=== PATIENT | female | born 1980 | race Caucasian/White ===

== ENCOUNTER 2018-11-16 09:07 | Emergency (ER) | payer OTHER, SELFPAY ==
[2018-11-16 09:10] VITALS: BP 175/101; PULSE 79; RESP 22; TEMP 37; O2SAT 100; BMI 37.5
--- NOTE | 2018-11-16 09:19 | DI.RAD.S_ITS ---
PROCEDURE: XR WRIST LT MIN 3V INDICATIONS: multiple injuries to left wrist TECHNIQUE: 4 views of the wrist were acquired. COMPARISON: None. FINDINGS: Bones: No fractures or dislocations. No suspicious bony lesions. Scaphoid view: Negative for fracture. Soft tissues: No suspicious soft tissue calcifications. IMPRESSION: Intact left wrist. Dictated by: Althea Machado M.D. on 11/16/2018 at 9:50 Approved by: Althea Machado M.D. on 11/16/2018 at 9:51
[2018-11-16 10:06] VITALS: PULSE 88
--- NOTE | 2018-11-16 10:07 | PC.NURSE ---
Left wrist: No trauma noted. No swelling or bruising. Took tylenol and ibuprofen (1000 mg / 800 mg) @ 0930. Pain appears to be improportionate to injury / exam.
--- NOTE | 2018-11-16 10:09 | ED.UPPEXIN ---
HPI - Extremity Injury (Upper) General Chief Complaint: Extremity Injury, Upper Stated Complaint: Twisted wrist Lt. Time Seen by Provider: 11/16/18 09:30 Source: patient Mode of arrival: ambulatory Limitations: no limitations History of Present Illness HPI narrative: Patient is a 37-year-old female who presents with left wrist pain. She injured it twice over the last 4 days. The 1st was 4 days ago she was crawling around on her hands and knees as the vacuum cord at got wrapped in her wedding ring a got twisted and turned. Then yesterday she picked up a very heavy safe with her left hand increasing the pain. She has been using a splint. She has taken maximum amount of Tylenol and ibuprofen prior to arrival. She feels numbness and tingling in her whole hand. Definitely worse with movement. She has no shoulder pain or elbow pain. MD complaint: injury to: left and wrist Other injuries: none Related Data Previous Rx's Medication Instructions Recorded hydromorphone [Dilaudid] 2 mg PO Q6HP PRN #8 tab 03/10/16 ketorolac 10 mg PO Q6HP PRN #10 tab 03/10/16 prednisone 20 mg PO QAM #3 tab 03/10/16 promethazine 25 mg PO Q6HP PRN #10 tab 03/10/16 promethazine 25 mg PO Q6HP PRN #10 tab 07/10/16 hydrocodone-acetaminophen [[place]] 1 tab PO Q6H PRN #10 tab 11/16/18 Allergies Allergy/AdvReac Type Severity Reaction Status Date / Time Sulfa (Sulfonamide Allergy Severe NAUSEA, Verified 11/16/18 09:31 Antibiotics) ITCHING [SULFA (SULFONAMIDE ANTIBIOTICS)] codeine [CODEINE] Allergy Mild NAUSEA, Verified 11/16/18 09:31 ITCHING cephalexin [CEPHALEXIN] Allergy Unknown NAUSEA/VOMI Verified 11/16/18 09:31 TING levofloxacin [LEVOFLOXACIN] Allergy Unknown N/V, Verified 11/16/18 09:31 DIARRHEA, HEADACHE amoxicillin [AMOXICILLIN] AdvReac Intermediate YEAST Verified 11/16/18 09:31 INFECTION Review of Systems Review of Systems GENERAL: Denies chills,fever HEENT: Denies throat pain RESPIRATORY: Denies dyspnea, cough, wheezing CARDIOVASCULAR: Denies chest pain, palpitations GASTROINTESTINAL: Denies nausea, vomiting MUSCULOSKELETAL: Left wrist pain/injury SKIN: No rash, no laceration, no pruritus NEUROLOGIC: Denies weakness, dizziness, headache, numbness 8 point review of systems is negative except for those stated above and HPI [facility] Medical History Bipolar 1 disorder (Acute) Depression (Acute) Night terrors, adult (Acute) Social History Smoking Status: Former smoker Social History Smoking Status: Former smoker Exam Initial Vital Signs Initial Vital Signs: Vital Signs Temperature 98.6 F 11/16/18 09:10 Pulse Rate 79 11/16/18 09:10 Respiratory Rate 22 11/16/18 09:10 Blood Pressure 175/101 H 11/16/18 09:10 Pulse Oximetry 100 11/16/18 09:10 GENERAL: Well-appearing, well-nourished, CARDIOVASCULAR: peripheral pulses in tact, cap refill <2 sec RESPIRATORY: No respiratory distress, speaks in full sentences without difficulty EXTREMITIES: Normal range of motion, no clubbing or edema. Neurovascularly intact -left wrist mild swelling pain with any motion. Peripheral pulses intact. Sensation to soft touch intact. Pain with movement, of wrist or fingers. Shoulder full range of motion, elbow full range motion NEUROLOGICAL: Cranial nerves II through XII grossly intact. Normal gait and speech. SKIN: Warm, dry, no petechiae, no rashes or lesions. Course Orders Ordered: ED Orders 11/16/18 09:19 XR wrist LT min 3V Stat Vital Signs - 8 hr 11/16/18 09:10 11/16/18 10:06 11/16/18 10:20 Temperature 98.6 F Pulse Rate 79 78 Pulse Rate [Left Radial] 88 Respiratory Rate 22 18 Blood Pressure 175/101 H Blood Pressure [Right Arm] 158/118 H Pulse Oximetry 100 98 MDM - Extremity Injury (Upper) Imaging Data Left wrist: Radiologist's impression: PROCEDURE: XR WRIST LT MIN 3V INDICATIONS: multiple injuries to left wrist TECHNIQUE: 4 views of the wrist were acquired. COMPARISON: None. FINDINGS: Bones: No fractures or dislocations. No suspicious bony lesions. Scaphoid view: Negative for fracture. Soft tissues: No suspicious soft tissue calcifications. IMPRESSION: Intact left wrist. Dictated by: Althea Machado M.D. on 11/16/2018 at 9:50 Approved by: Althea Machado M.D. on 11/16/2018 at 9:51 MDM Narrative Medical decision making narrative: The patient's x-ray is negative. Surely has a splint. She does seem to be in quite a bit of pain. She is able to move fingers. She will be given a few [place] and recommend outpatient follow-up. Discharge Plan Departure Patient Disposition: Home Clinical Impression: Left wrist sprain Qualifiers: Encounter type: initial encounter Qualified Code(s): S63.502A - Unspecified sprain of left wrist, initial encounter Discharge Date/Time: 11/16/18 10:27 Interventions: ED Discharge Assessment Last Done: 11/16/18 10:26 Instructions: DI for Wrist Sprain Activity Restrictions/Additional Instructions: *You have been diagnosed with left wrist sprain *What to do: You may require repeat x-ray in 7-10 days if still having increased pain. If still having pain in 2-3 weeks may require MRI. Wear splint as needed *Continue to take medications as directed [place] 1 tablet every 6 hours if needed for severe pain *Follow up with your primary care provider in 2-3 days *Return to ER if you should have increasing pain increasing weakness or any new, worsening or concerning symptoms CONTROLLED SUBSTANCE DISCHARGE (Narcotoic/benzodiazepine/Flexeril/Phenergan) 1. You have been prescribed narcotic medications, it does have acetaminophen/Tylenol/paracetamol in it so do not take extra Tylenol or Tylenol containing products 2. Please understand that we cannot provide further refills of narcotics, benzodiazepines or controlled substances through the ED and her pain management will need to be through your provider. 3. While on these medications you cannot drive or operate heavy machinery. 4. You cannot sign legal documents or perform any duties such as this. 5. As long as you're taking opiate pain medications he should also be taking a stool softener such as Colace, Dulcolax, MiraLAX or prune juice, to help avoid constipation. Prescriptions: New hydrocodone-acetaminophen [[place]] 5-325 mg tablet 1 tab PO Q6H PRN (Reason: pain) Qty: 10 RF: 0 No Action prednisone 20 MG tablet 20 mg PO QAM Qty: 3 RF: 0 ketorolac 10 MG tablet 10 mg PO Q6HP PRNQty: 10 RF: 0 hydromorphone [Dilaudid] 2 MG tablet 2 mg PO Q6HP PRNQty: 8 RF: 0 promethazine 25 MG tablet 25 mg PO Q6HP PRNQty: 10 RF: 0 promethazine 25 MG tablet 25 mg PO Q6HP PRNQty: 10 RF: 0
[2018-11-16 10:20] VITALS: BP 158/118; PULSE 78; RESP 18; O2SAT 98
--- NOTE | 2018-11-16 10:24 | PC.NURSE ---
Pt states her bp is high for me. She denies headache, chest pain, neuro changes or other complaints except left wrist. Encouraged to return for any s/s of hypertension. Encouraged to discuss w/ provider when she them her in 2 days.
== END 2018-11-16 10:27 | disposition home or self-care (01) ==
PROVIDERS: Emergency Provider Emergency Medicine
DX: S63.502A Unspecified sprain of left wrist, initial encounter (principal); X50.0XXA Overexertion from strenuous movement or load, initial encounter
CPT/HCPCS: 73110; 99282; 99283

== ENCOUNTER 2022-06-26 12:20 | Emergency (ER) | payer OTHER, SELFPAY ==
[2022-06-26] VITALS (15 sets, daily range): BP systolic 127–152; BP diastolic 74–92; PULSE 105–123; RESP 16–18; TEMP 36.6; O2SAT 91–100; BMI 45.1
--- NOTE | 2022-06-26 12:29 | DI.RAD.S_ITS ---
PROCEDURE: XR HIP W PEL IF DONE RT 2V INDICATIONS: Fall TECHNIQUE: AP pelvis with lateral view(s) of the right hip(s). COMPARISON: None. FINDINGS: Bones: No fractures or dislocations. Pelvic ring appears intact. No suspicious bony lesions. Soft tissues: The visualized bowel gas pattern is normal. No suspicious soft tissue calcifications. IMPRESSION: No visualized acute fracture or dislocation. However, if clinical concern and/or pain persist, short interval imaging followup in 7-10 days is recommended, as occult injury cannot be definitively excluded. Dictated by: Sandy Jacob M.D. on 06/26/2022 at 13:11 Approved by: Sandy Jacob M.D. on 06/26/2022 at 13:11
--- NOTE | 2022-06-26 12:30 | DI.RAD.S_ITS ---
PROCEDURE: XR RIBS RT MIN 3V W CXR 1V INDICATIONS: Fall TECHNIQUE: Two views of the right ribs were acquired, along with a single view chest. COMPARISON: None. FINDINGS: Surgical changes and devices: None. Bones and chest wall: No fractures or dislocations. No suspicious bony lesions. Overlying soft tissues appear unremarkable. Lungs and pleura: No pleural effusions or pneumothorax. Lungs appear clear. Mediastinum: Mediastinal contours appear normal. Heart size is normal. IMPRESSION: No trauma found, no pneumothorax identified. Dictated by: Tino Phipps M.D. on 06/26/2022 at 13:04 Approved by: Tino Phipps M.D. on 06/26/2022 at 13:06
--- NOTE | 2022-06-26 12:42 | PC.NURSE ---
Per EMS pt received total of 200mcg fentanyl and 4mg zofran in route. Pt noted to desat to 86%, breathing even and unlabored, applied 2L NC and educated pt on deep breathing. Pt verbalizes understanding.
--- NOTE | 2022-06-26 13:22 | ED_ITS ---
HPI - Fall <Cintia Angel Vanefarida, [facility] [place] - Last Filed: 06/26/22 17:10> General Chief Complaint: Fall Stated Complaint: R Hip snap crackle pop Time Seen by Provider: 06/26/22 12:55 Source: patient and EMS Mode of arrival: EMS History of Present Illness HPI Narrative: This is a 41-year-old female with history of bipolar 1 who presents to the emergency department via EMS after a mechanical fall where she was walking outsi de onto her right side and now complains of right-sided hip pain. She states that she is had a history hip pain with ambulation for the last 2-3 months. She denies any surgeries over lower extremities in the past. She has history of bladder stimulator, denies history of low back pain, has documented history kidney stone and hematuria in the past and endorses that she feels like she has a urinary tract infection. She states that she is allergic to multiple antibiotics, states she is allergic to Percocet with itching but does not have anaphylaxis, states that she uses Xanax and muscle relaxers for pain at. She also states that Zofran is not adequate for nausea and she needs something stro nger. She states that she is had a low-grade fever for the last 2 days but denies diaphoresis, shortness of breath, difficulty breathing, chest pain, weakness, incontinence, abdominal pain, flank pain or other pain. She denies any sensation changes, states that after the fall she was able to get up with the help of 2 people but states she was unable to bear weight on this side. Patient is sitting up on the stretcher, appears comfortable, is talkative, received 200 mcgs of fentanyl EN route. Patient denies any in her head, did not have any emesis, does not feel neck pain, denies LOC. Related Data Previous Rx's Medication Instructions Recorded hydromorphone 2 mg tablet 2 mg PO Q6HP PRN #8 tabs 03/10/16 (Dilaudid) ketorolac 10 mg tablet 10 mg PO Q6HP PRN #10 tabs 03/10/16 prednisone 20 mg tablet 20 mg PO QAM #3 tabs 03/10/16 promethazine 25 mg tablet 25 mg PO Q6HP PRN #10 tabs 03/10/16 promethazine 25 mg tablet 25 mg PO Q6HP PRN #10 tabs 07/10/16 hydrocodone 5 mg-acetaminophen 325 1 tab PO Q6H PRN pain #10 tabs 11/16/18 mg tablet (Irving) nitrofurantoin 100 mg PO BID 5 days #10 caps 06/26/22 monohydrate/macrocrystals 100 mg capsule (Macrobid) oxycodone-acetaminophen 5 mg-325 1 tab PO Q8H PRN pain #10 tabs 06/26/22 mg tablet (Percocet) phenazopyridine 200 mg tablet 200 mg PO QPC PRN pain 6 doses #7 06/26/22 (Pyridium) tabs promethazine 12.5 mg tablet 12.5 mg PO BID #10 tabs 06/26/22 Allergies Allergy/AdvReac Type Severity Reaction Status Date / Time Sulfa (Sulfonamide Allergy Severe NAUSEA, Verified 06/26/22 12:26 Antibiotics) ITCHING [SULFA (SULFONAMIDE ANTIBIOTICS)] codeine [CODEINE] Allergy Mild NAUSEA, Verified 06/26/22 12:26 ITCHING cephalexin [CEPHALEXIN] Allergy Unknown NAUSEA/VOMI Verified 06/26/22 12:26 TING levofloxacin [LEVOFLOXACIN] Allergy Unknown N/V, Verified 06/26/22 12:26 DIARRHEA, HEADACHE amoxicillin [AMOXICILLIN] AdvReac Intermediate YEAST Verified 06/26/22 12:26 INFECTION Review of Systems <KEENAN Lopes - Last Filed: 06/26/22 17:10> Review of Systems ROS Unobtainable: All systems reviewed & are unremarkable except as noted in HPI and below Patient History <KEENAN Lopes - Last Filed: 06/26/22 17:10> Medical History (Updated 06/26/22 @ 16:24 by KEENAN Lopes) Bipolar 1 disorder Depression Night terrors, adult Social History Smoking Status: Former smoker Smoking Status: Former smoker alcohol intake frequency: holidays/special occasions only Substance Use Type: does not use Exam <KEENAN Lopes - Last Filed: 06/26/22 17:10> Narrative Exam Narrative: Reviewed vitals signs and nursing notes. General: cooperative, comfortable, in no acute distress, well groomed, afebrile HEENT: symmetrical facial expressions, moist mucous membranes Cardiovascular tachycardic rate and regular rhythm, no peripheral edema, warm extremities Respiratory: normal effort, able to speak in complete sentences, without wheezing, stridor, or abnormal breath sounds. No retractions or tachypnea. Currently she is wearing 2 L nasal cannula but her pulse oximeter is reading 98%. Patient received pain medication in route and caused her O2 sats drop while she was lying down, she was started on this but now is much more awake and alert. GI: abdomen soft, nontender to palpation, nondistended, without masses, rebound tenderness or exquisite tenderness with exam. No CVA tenderness bilaterally MSK: moves all extremities, neurovascularly intact, no weakness, normal tone, nontender over spine, patient complains of pain to the right iliac crest with palpation, full range of motion of right hip is without weakness. Full range of motion of her right knee and right foot with good perfusion, palpable pedal pulses. Brisk cap refill in her toes. She denies any sensation deficit. No ecchymosis or obvious deformity, no pain to right hip with axial load from foot Skin: brisk capillary refill, without pallor or erythema Neuro: normal speech and cognition, A&O x3, ambulatory, clear speech Psych: mental status is grossly normal, congruent mood, normal affect, pleasant and cooperative Initial Vital Signs Initial Vital Signs: Vital Signs Temperature 97.9 F 06/26/22 12:20 Pulse Rate 114 H 06/26/22 12:20 Respiratory Rate 16 06/26/22 12:20 Blood Pressure 133/92 H 06/26/22 12:20 Pulse Oximetry 100 06/26/22 12:20 Oxygen Delivery Method 06/26/22 12:20 <Jose Rubio DO - Last Filed: 06/26/22 17:30> Initial Vital Signs Initial Vital Signs: Vital Signs Temperature 97.9 F 06/26/22 12:20 Pulse Rate 114 H 06/26/22 12:20 Respiratory Rate 16 06/26/22 12:20 Blood Pressure 133/92 H 06/26/22 12:20 Pulse Oximetry 100 06/26/22 12:20 Oxygen Delivery Method 06/26/22 12:20 Course <KEENAN Lopes - Last Filed: 06/26/22 17:10> Orders Ordered: ED Orders 06/26/22 12:29 XR hip w pel if done RT 2V Stat 06/26/22 12:30 XR ribs RT min 3V w CXR1V Stat 06/26/22 13:37 EKG-12 Lead Stat 06/26/22 13:41 Covid-19 + FLU A/B + RSV - PCR Stat 06/26/22 14:05 CBC Auto Diff [Complete Blood Count AUTO DIFF] Stat CMP [Comprehensive Metabolic Panel] Stat CRP [C-Reactive Protein Quant] Stat Procalcitonin Stat 06/26/22 15:19 Urine Microscopic Stat 06/26/22 16:20 Urine Culture Stat Discontinued Medications Diphenhydramine HCl (Diphenhydramine 50 Mg/Ml Vial) 25 mg IV NOW ONE Stop: 06/26/22 13:22 Last Admin: 06/26/22 14:20 Dose: Not Given Documented By: AT Fosfomycin Tromethamine (Fosfomycin 3 Gm Packet) 3 gm PO NOW ONE Stop: 06/26/22 16:26 Last Admin: 06/26/22 17:05 Dose: Not Given Documented By: AT Hydromorphone HCl (Hydromorphone 0.5 Mg Inj) 0.5 mg IV NOW ONE Stop: 06/26/22 13:19 Last Admin: 06/26/22 14:19 Dose: Not Given Documented By: AT Hydromorphone HCl (Hydromorphone 2 Mg Tablet) 2 mg PO NOW ONE Stop: 06/26/22 14:13 Last Admin: 06/26/22 14:29 Dose: 2 mg Documented By: AT Sodium Chloride (Normal Saline 0.9%) 1,000 mls @ 1,000 mls/hr IV BOLUS ONE Stop: 06/26/22 14:20 Ketorolac Tromethamine (Ketorolac 30 Mg/Ml Vial) 15 mg IV NOW ONE Stop: 06/26/22 13:19 Last Admin: 06/26/22 14:19 Dose: Not Given Documented By: AT Ketorolac Tromethamine (Ketorolac 30 Mg/Ml Vial) 30 mg IM NOW ONE Stop: 06/26/22 14:13 Last Admin: 06/26/22 16:05 Dose: 30 mg Documented By: AT Methocarbamol (Methocarbamol 500 Mg Tablet) 750 mg PO NOW ONE Stop: 06/26/22 13:19 Last Admin: 06/26/22 14:30 Dose: 750 mg Documented By: AT Metoclopramide HCl (Metoclopramide 10 Mg/2 Ml Inj) 10 mg IV NOW ONE Stop: 06/26/22 13:19 Last Admin: 06/26/22 14:20 Dose: Not Given Documented By: AT Nitrofurantoin Macrocrystals (Nitrofurantoin Er 100 Mg Capsule) 100 mg PO NOW ONE Stop: 06/26/22 16:23 Last Admin: 06/26/22 17:04 Dose: Not Given Documented By: AT Nitrofurantoin Macrocrystals (Nitrofurantoin Er 100 Mg Capsule) 100 mg PO NOW ONE Stop: 06/26/22 16:39 Last Admin: 06/26/22 16:55 Dose: 100 mg Documented By: AT Phenazopyridine HCl (Phenazopyridine 100 Mg Tablet) 200 mg PO NOW ONE Stop: 06/26/22 15:29 Last Admin: 06/26/22 16:05 Dose: 200 mg Documented By: AT Promethazine HCl (Promethazine 25 Mg Tablet) 12.5 mg PO NOW ONE Stop: 06/26/22 14:13 Last Admin: 06/26/22 14:29 Dose: 12.5 mg Documented By: AT Vital Signs Vital signs: Vital Signs - 8 hr 06/26/22 12:20 06/26/22 12:25 06/26/22 12:30 Temperature 97.9 F Pulse Rate 114 H 112 H Respiratory Rate 16 Blood Pressure 133/92 H 138/88 Pulse Oximetry 100 96 Oxygen Delivery Method Room Air Oxygen Flow Rate 06/26/22 12:30 06/26/22 12:43 06/26/22 13:00 Temperature Pulse Rate 111 H 115 H Respiratory Rate Blood Pressure Pulse Oximetry 96 93 93 Oxygen Delivery Method Room Air Nasal Cannula Oxygen Flow Rate 2 06/26/22 13:30 06/26/22 13:45 06/26/22 13:45 Temperature Pulse Rate 118 H 122 H Respiratory Rate Blood Pressure 152/81 H Pulse Oximetry 94 96 Oxygen Delivery Method Oxygen Flow Rate 06/26/22 14:00 06/26/22 14:30 06/26/22 15:00 Temperature Pulse Rate 123 H 120 H 122 H Respiratory Rate Blood Pressure Pulse Oximetry 96 95 91 Oxygen Delivery Method Nasal Cannula Room Air Room Air Oxygen Flow Rate 1 06/26/22 15:30 06/26/22 16:01 06/26/22 16:00 Temperature Pulse Rate 111 H 105 H 107 H Respiratory Rate 18 Blood Pressure Pulse Oximetry 91 94 95 Oxygen Delivery Method Room Air Room Air Oxygen Flow Rate 06/26/22 16:30 06/26/22 16:37 06/26/22 16:37 Temperature Pulse Rate 112 H 111 H Respiratory Rate Blood Pressure 127/74 Pulse Oximetry 96 94 Oxygen Delivery Method Oxygen Flow Rate <Jose Rubio DO - Last Filed: 06/26/22 17:30> Orders Ordered: ED Orders 06/26/22 12:29 XR hip w pel if done RT 2V Stat 06/26/22 12:30 XR ribs RT min 3V w CXR1V Stat 06/26/22 13:37 EKG-12 Lead Stat 06/26/22 13:41 Covid-19 + FLU A/B + RSV - PCR Stat 06/26/22 14:05 CBC Auto Diff [Complete Blood Count AUTO DIFF] Stat CMP [Comprehensive Metabolic Panel] Stat CRP [C-Reactive Protein Quant] Stat Procalcitonin Stat 06/26/22 15:19 Urine Microscopic Stat 06/26/22 16:20 Urine Culture Stat Discontinued Medications Diphenhydramine HCl (Diphenhydramine 50 Mg/Ml Vial) 25 mg IV NOW ONE Stop: 06/26/22 13:22 Last Admin: 06/26/22 14:20 Dose: Not Given Documented By: AT Fosfomycin Tromethamine (Fosfomycin 3 Gm Packet) 3 gm PO NOW ONE Stop: 06/26/22 16:26 Last Admin: 06/26/22 17:05 Dose: Not Given Documented By: AT Hydromorphone HCl (Hydromorphone 0.5 Mg Inj) 0.5 mg IV NOW ONE Stop: 06/26/22 13:19 Last Admin: 06/26/22 14:19 Dose: Not Given Documented By: AT Hydromorphone HCl (Hydromorphone 2 Mg Tablet) 2 mg PO NOW ONE Stop: 06/26/22 14:13 Last Admin: 06/26/22 14:29 Dose: 2 mg Documented By: AT Sodium Chloride (Normal Saline 0.9%) 1,000 mls @ 1,000 mls/hr IV BOLUS ONE Stop: 06/26/22 14:20 Ketorolac Tromethamine (Ketorolac 30 Mg/Ml Vial) 15 mg IV NOW ONE Stop: 06/26/22 13:19 Last Admin: 06/26/22 14:19 Dose: Not Given Documented By: AT Ketorolac Tromethamine (Ketorolac 30 Mg/Ml Vial) 30 mg IM NOW ONE Stop: 06/26/22 14:13 Last Admin: 06/26/22 16:05 Dose: 30 mg Documented By: AT Methocarbamol (Methocarbamol 500 Mg Tablet) 750 mg PO NOW ONE Stop: 06/26/22 13:19 Last Admin: 06/26/22 14:30 Dose: 750 mg Documented By: AT Metoclopramide HCl (Metoclopramide 10 Mg/2 Ml Inj) 10 mg IV NOW ONE Stop: 06/26/22 13:19 Last Admin: 06/26/22 14:20 Dose: Not Given Documented By: AT Nitrofurantoin Macrocrystals (Nitrofurantoin Er 100 Mg Capsule) 100 mg PO NOW ONE Stop: 06/26/22 16:23 Last Admin: 06/26/22 17:04 Dose: Not Given Documented By: AT Nitrofurantoin Macrocrystals (Nitrofurantoin Er 100 Mg Capsule) 100 mg PO NOW ONE Stop: 06/26/22 16:39 Last Admin: 06/26/22 16:55 Dose: 100 mg Documented By: AT Phenazopyridine HCl (Phenazopyridine 100 Mg Tablet) 200 mg PO NOW ONE Stop: 06/26/22 15:29 Last Admin: 06/26/22 16:05 Dose: 200 mg Documented By: AT Promethazine HCl (Promethazine 25 Mg Tablet) 12.5 mg PO NOW ONE Stop: 06/26/22 14:13 Last Admin: 06/26/22 14:29 Dose: 12.5 mg Documented By: AT Vital Signs Vital signs: Vital Signs - 8 hr 06/26/22 12:20 06/26/22 12:25 06/26/22 12:30 Temperature 97.9 F Pulse Rate 114 H 112 H Respiratory Rate 16 Blood Pressure 133/92 H 138/88 Pulse Oximetry 100 96 Oxygen Delivery Method Room Air Oxygen Flow Rate 06/26/22 12:30 06/26/22 12:43 06/26/22 13:00 Temperature Pulse Rate 111 H 115 H Respiratory Rate Blood Pressure Pulse Oximetry 96 93 93 Oxygen Delivery Method Room Air Nasal Cannula Oxygen Flow Rate 2 06/26/22 13:30 06/26/22 13:45 06/26/22 13:45 Temperature Pulse Rate 118 H 122 H Respiratory Rate Blood Pressure 152/81 H Pulse Oximetry 94 96 Oxygen Delivery Method Oxygen Flow Rate 06/26/22 14:00 06/26/22 14:30 06/26/22 15:00 Temperature Pulse Rate 123 H 120 H 122 H Respiratory Rate Blood Pressure Pulse Oximetry 96 95 91 Oxygen Delivery Method Nasal Cannula Room Air Room Air Oxygen Flow Rate 1 06/26/22 15:30 06/26/22 16:01 06/26/22 16:00 Temperature Pulse Rate 111 H 105 H 107 H Respiratory Rate 18 Blood Pressure Pulse Oximetry 91 94 95 Oxygen Delivery Method Room Air Room Air Oxygen Flow Rate 06/26/22 16:30 06/26/22 16:37 06/26/22 16:37 Temperature Pulse Rate 112 H 111 H Respiratory Rate Blood Pressure 127/74 Pulse Oximetry 96 94 Oxygen Delivery Method Oxygen Flow Rate MDM - Fall <Cintia Odonnell, NURSE PRACTITIONER MANAGER - Last Filed: 06/26/22 17:10> Lab Data 06/26/22 14:05 06/26/22 14:05 Labs: Lab Results 06/26/22 06/26/22 06/26/22 Range/Units 13:41 14:05 14:05 WBC 6.7 (4.5-11.0) X10^3/uL RBC 5.16 (4.0-5.2) X10^6/uL Hgb 13.2 (12.0-16.0) g/dL Hct 40.1 (36-46) % MCV 77.6 L (80-100) fL MCH 25.5 L (26-34) PG MCHC 32.8 (30-36) % RDW 15.2 H (11.6-14.8) % Plt Count 207 (150-400) X10^3/uL Neut % (Auto) 53.8 (50-75) % Lymph % (Auto) 39.2 (25-40) % Talbot % (Auto) 4.4 (3-14) % Eos % (Auto) 2.2 (2-4) % Baso % (Auto) 0.4 (0-2) % Neut # (Auto) 3600 (0722-0216) /uL Lymph # (Auto) 2600 (7917-1554) /uL Talbot # (Auto) 300 (0-900) /uL Eos # (Auto) 200 (0-450) /uL Baso # (Auto) 0 (0-100) /uL Sodium 139 (137-145) mmol/L Potassium 3.9 (3.4-5.1) mmol/L Chloride 101 (98-107) mmol/L Carbon Dioxide 24 (22-32) mmol/L BUN 8 (7-17) mg/dL Creatinine 0.33 L (0.52-1.04) mg/dL Estimated GFR > 60 (>60) mL/min BUN/Creatinine Ratio 24.2 H (6-22) Glucose 170 H (70-100) mg/dL Calcium 9.1 (8.4-10.2) mg/dL Total Bilirubin 0.6 (0.2-1.3) mg/dL AST 129 H (14-36) IU/L ALT 69 H (<35) IU/L Alkaline Phosphatase 143 H (38-126) U/L C-Reactive Protein 1.6 H (<1.0) mg/dL Total Protein 8.5 H (6.3-8.2) g/dL Albumin 4.6 (3.5-5.0) g/dL Globulin 3.9 (1.7-4.1) g/dL Albumin/Globulin Ratio 1.2 (1.0-2.8) Procalcitonin 0.12 (<0.5) ng/mL Urine RBC (0-5/HPF) Urine WBC (0-5/HPF) Ur Squamous Epith Cells (0-5/HPF) Urine Bacteria (None) Ur Culture Indicated? SARS-CoV-2 (PCR) Negative (Negative) Influenza A (RT-PCR) Flu a negative (NEGATIVE) Influenza B (RT-PCR) Flu b negative (NEGATIVE) RSV (PCR) Negative (Negative) 06/26/22 Range/Units 15:19 WBC (4.5-11.0) X10^3/uL RBC (4.0-5.2) X10^6/uL Hgb (12.0-16.0) g/dL Hct (36-46) % MCV (80-100) fL MCH (26-34) PG MCHC (30-36) % RDW (11.6-14.8) % Plt Count (150-400) X10^3/uL Neut % (Auto) (50-75) % Lymph % (Auto) (25-40) % Talbot % (Auto) (3-14) % Eos % (Auto) (2-4) % Baso % (Auto) (0-2) % Neut # (Auto) (7367-6229) /uL Lymph # (Auto) (1729-3360) /uL Talbot # (Auto) (0-900) /uL Eos # (Auto) (0-450) /uL Baso # (Auto) (0-100) /uL Sodium (137-145) mmol/L Potassium (3.4-5.1) mmol/L Chloride (98-107) mmol/L Carbon Dioxide (22-32) mmol/L BUN (7-17) mg/dL Creatinine (0.52-1.04) mg/dL Estimated GFR (>60) mL/min BUN/Creatinine Ratio (6-22) Glucose (70-100) mg/dL Calcium (8.4-10.2) mg/dL Total Bilirubin (0.2-1.3) mg/dL AST (14-36) IU/L ALT (<35) IU/L Alkaline Phosphatase (38-126) U/L C-Reactive Protein (<1.0) mg/dL Total Protein (6.3-8.2) g/dL Albumin (3.5-5.0) g/dL Globulin (1.7-4.1) g/dL Albumin/Globulin Ratio (1.0-2.8) Procalcitonin (<0.5) ng/mL Urine RBC None seen (0-5/HPF) Urine WBC 0-1/hpf (0-5/HPF) Ur Squamous Epith Cells 1-5 /hpf (0-5/HPF) Urine Bacteria Many (>30) H (None) Ur Culture Indicated? Cult not indicated SARS-CoV-2 (PCR) (Negative) Influenza A (RT-PCR) (NEGATIVE) Influenza B (RT-PCR) (NEGATIVE) RSV (PCR) (Negative) Point of Care Testing Test Results Negative Urine Dip Bedside Urine Glucose 1000 mg/dl Bedside Urine Bilirubin - Negative Bedside Urine Ketone +/- 5 Urine Specific Rowe 1.025 Bedside Urine Occult Blood - Negative Bedside Urine pH 6.0 Bedside Urine Protein +/- 15 Bedside Urine Urobilinogen - Negative Bedside Urine Nitrite - Negative Bedside Urine Leukocytes - Negative Esterase Imaging Data Chest x-ray: Radiologist's Impression: PROCEDURE:? XR RIBS RT MIN 3V W CXR 1V ? INDICATIONS:? Fall ? TECHNIQUE:? Two views of the right ribs were acquired, along with a single view chest.? ? COMPARISON:? None. ? FINDINGS:? ? Surgical changes and devices:? None.? ? Bones and chest wall:? No fractures or dislocations.? No suspicious bony lesions.? Overlying soft tissues appear unremarkable.? ? Lungs and pleura:? No pleural effusions or pneumothorax.? Lungs appear clear.? ? Mediastinum:? Mediastinal contours appear normal.? Heart size is normal.? ? IMPRESSION:? No trauma found, no pneumothorax identified. ? ? Dictated by: Tino Phipps M.D. on 06/26/2022 at 13:04 ? ? Approved by: Tino Phipps M.D. on 06/26/2022 at 13:06 ? Extremity x-ray #2: Radiologist's Impression: PROCEDURE:? XR HIP W PEL IF DONE RT 2V ? INDICATIONS:? Fall ? TECHNIQUE:? AP pelvis with lateral view(s) of the right hip(s).? ? COMPARISON:? None. ? FINDINGS:? ? Bones:? No fractures or dislocations.? Pelvic ring appears intact.? No suspicious bony lesions.? ? Soft tissues:? The visualized bowel gas pattern is normal.? No suspicious soft tissue calcifications.? ? ? IMPRESSION:? No visualized acute fracture or dislocation. However, if clinical concern and/or pain persist, short interval imaging followup in 7-10 days is recommended, as occult injury cannot be definitively excluded. ? Dictated by: Sandy Jacob M.D. on 06/26/2022 at 13:11 ? ? Approved by: Sandy Jacob M.D. on 06/26/2022 at 13:11 ? ECG Data Interpretation: EKG independently reviewed by myself at [1340 reveals normal sinus rhythm at [117] bpm with regular axis and prolonged QT 450 milliseconds without other interval changes. No STEMI, ST segment changes, arrhythmia, or acute ischemic changes. MDM Narrative Medical decision making narrative: Chief Complaint: Fall onto her right side with hip pain Differential diagnoses include but are not limited to: Muscular Sprain/strain, hip fracture, acute cystitis, pyelonephritis, PID, nephrolithiasis, obstructive uropathy, I have reviewed the patient's vital signs and nursing notes as well as prior records if available. Lab test results independently reviewed, pertinent findings: Respiratory panel is negative for tested viruses, no leukocytosis or anemia, no left shift, no electrolyte abnormalities of concern, mild increase of alk-phos to 143, AST of 129 and ALT of 69 but no tenderness over her right upper quadrant to palpation. Independently reviewed imaging including: Right hip and right ribs x-ray without pneumothorax, acute fracture or other acute abnormality. Clinical decision rules or scores evaluated: Nexus and [place] head CT rule without indication for CT imaging of C-spine or head Course of care and re-evaluations: Met with the patient, ordered her pain medication per her request, she states she is nauseated but has not had vomiting and requests something stronger than Zofran. She is slurring her words mildly but is sitting upright, without hypo jamey, wearing 2 L nasal cannula as she became sedated in the ambulance EN route after receiving fentanyl. No concerning findings on exam of her right hip. Patient has a history of bipolar disorder, has had emotional episodes in the emergency department and states that she is extremely anxious and is unable to communicate or do anything at those times. Ordered UA, patient states that she thinks she can void. 1415 went to recheck patient's pain, and other her IV has been removed due to it not working. Patient tells me that she was incontinent. She starts hyperventilating, her heart rate goes up, she complains never having incontinence before. She says that she did not feel it coming on. She states that she still needs to void, the nurse was called. I evaluated the patient and found her to have rectal tone. Patient is able to ambulate and ambulated on the monitor with a heart rate of 1 05, she received her ketorolac at 16:00 and states that she is already starting to feel much better at 16:10. Patient's urine microscopy shows bacteria, urine culture was ordered, no prior urine cultures on record. Patient has an allergy to sulfa, cephalexin, levofloxacin, and amoxicillin, will treat with fosfomycin x1 and sent home with Macrobid. Patient does not have upper urinary symptoms, flank pain or other symptoms at this time. She is afebrile, her tachycardia has improved, she is received a fluid bolus, is starting to tolerate p.o., is without severe pain at this time, using her phone, talkative, denies any vaginal discharge, states that the urine was from catheter so she should not need to complete a wet mount and refuses the testing as she denies having any symptoms of vaginitis or pelvic pain. Shared decision making: With the patient about all of her care. She states that her pain is improved after medications Patient's symptoms improved over duration of stay with above-stated therapies. Her pain improved after those medications. Patient denies history of taking Dil audid at home for pain although it appeared as if she did as her medications were not confirmed or updated when she came in. She clarified that she can tolerate Percocet requests a prescription for Percocet to go home with. Patient's heart rate is currently 97 on the monitor, vitals have not been updated prior to her discharge. Social considerations that may affect disposition: none Questions are addressed and there is agreement with the plan and for follow-up. Patient is appropriate for outpatient management. MIPS: This encounter doesn't have any diagnosis' associated with MIPS criteria. <Jose Rubio, DO - Last Filed: 06/26/22 17:30> Lab Data Labs: Lab Results 06/26/22 06/26/22 06/26/22 Range/Units 13:41 14:05 14:05 WBC 6.7 (4.5-11.0) X10^3/uL RBC 5.16 (4.0-5.2) X10^6/uL Hgb 13.2 (12.0-16.0) g/dL Hct 40.1 (36-46) % MCV 77.6 L (80-100) fL MCH 25.5 L (26-34) PG MCHC 32.8 (30-36) % RDW 15.2 H (11.6-14.8) % Plt Count 207 (150-400) X10^3/uL Neut % (Auto) 53.8 (50-75) % Lymph % (Auto) 39.2 (25-40) % Talbot % (Auto) 4.4 (3-14) % Eos % (Auto) 2.2 (2-4) % Baso % (Auto) 0.4 (0-2) % Neut # (Auto) 3600 (8387-3032) /uL Lymph # (Auto) 2600 (2068-7774) /uL Talbot # (Auto) 300 (0-900) /uL Eos # (Auto) 200 (0-450) /uL Baso # (Auto) 0 (0-100) /uL Sodium 139 (137-145) mmol/L Potassium 3.9 (3.4-5.1) mmol/L Chloride 101 (98-107) mmol/L Carbon Dioxide 24 (22-32) mmol/L BUN 8 (7-17) mg/dL Creatinine 0.33 L (0.52-1.04) mg/dL Estimated GFR > 60 (>60) mL/min BUN/Creatinine Ratio 24.2 H (6-22) Glucose 170 H (70-100) mg/dL Calcium 9.1 (8.4-10.2) mg/dL Total Bilirubin 0.6 (0.2-1.3) mg/dL AST 129 H (14-36) IU/L ALT 69 H (<35) IU/L Alkaline Phosphatase 143 H (38-126) U/L C-Reactive Protein 1.6 H (<1.0) mg/dL Total Protein 8.5 H (6.3-8.2) g/dL Albumin 4.6 (3.5-5.0) g/dL Globulin 3.9 (1.7-4.1) g/dL Albumin/Globulin Ratio 1.2 (1.0-2.8) Procalcitonin 0.12 (<0.5) ng/mL Urine RBC (0-5/HPF) Urine WBC (0-5/HPF) Ur Squamous Epith Cells (0-5/HPF) Urine Bacteria (None) Ur Culture Indicated? SARS-CoV-2 (PCR) Negative (Negative) Influenza A (RT-PCR) Flu a negative (NEGATIVE) Influenza B (RT-PCR) Flu b negative (NEGATIVE) RSV (PCR) Negative (Negative) 06/26/22 Range/Units 15:19 WBC (4.5-11.0) X10^3/uL RBC (4.0-5.2) X10^6/uL Hgb (12.0-16.0) g/dL Hct (36-46) % MCV (80-100) fL MCH (26-34) PG MCHC (30-36) % RDW (11.6-14.8) % Plt Count (150-400) X10^3/uL Neut % (Auto) (50-75) % Lymph % (Auto) (25-40) % Talbot % (Auto) (3-14) % Eos % (Auto) (2-4) % Baso % (Auto) (0-2) % Neut # (Auto) (7397-9003) /uL Lymph # (Auto) (2421-9710) /uL Talbot # (Auto) (0-900) /uL Eos # (Auto) (0-450) /uL Baso # (Auto) (0-100) /uL Sodium (137-145) mmol/L Potassium (3.4-5.1) mmol/L Chloride (98-107) mmol/L Carbon Dioxide (22-32) mmol/L BUN (7-17) mg/dL Creatinine (0.52-1.04) mg/dL Estimated GFR (>60) mL/min BUN/Creatinine Ratio (6-22) Glucose (70-100) mg/dL Calcium (8.4-10.2) mg/dL Total Bilirubin (0.2-1.3) mg/dL AST (14-36) IU/L ALT (<35) IU/L Alkaline Phosphatase (38-126) U/L C-Reactive Protein (<1.0) mg/dL Total Protein (6.3-8.2) g/dL Albumin (3.5-5.0) g/dL Globulin (1.7-4.1) g/dL Albumin/Globulin Ratio (1.0-2.8) Procalcitonin (<0.5) ng/mL Urine RBC None seen (0-5/HPF) Urine WBC 0-1/hpf (0-5/HPF) Ur Squamous Epith Cells 1-5 /hpf (0-5/HPF) Urine Bacteria Many (>30) H (None) Ur Culture Indicated? Cult not indicated SARS-CoV-2 (PCR) (Negative) Influenza A (RT-PCR) (NEGATIVE) Influenza B (RT-PCR) (NEGATIVE) RSV (PCR) (Negative) Point of Care Testing Test Results Negative Urine Dip Bedside Urine Glucose 1000 mg/dl Bedside Urine Bilirubin - Negative Bedside Urine Ketone +/- 5 Urine Specific Rowe 1.025 Bedside Urine Occult Blood - Negative Bedside Urine pH 6.0 Bedside Urine Protein +/- 15 Bedside Urine Urobilinogen - Negative Bedside Urine Nitrite - Negative Bedside Urine Leukocytes - Negative Esterase Discharge Plan Departure Patient Disposition: Home Clinical Impression: Acute dehydration UTI (urinary tract infection) Qualifiers: Urinary tract infection type: acute cystitis Hematuria presence: without hematuria Qualified Code(s): N30.00 - Acute cystitis without hematuria Instructions: DI for Urinary Tract Infection (UTI), How to Prevent Falls Activity Restrictions/Additional Instructions: *You have been diagnosed with urinary tract infection, fall with a right hip injury without fracture, or other abnormality visualized on x-ray to your ribs or pelvis. Your lab work overall is unremarkable which is a great thing, please stay hydrated, tomorrow start taking Macrobid for your bladder infection. If you have worsening of her symptoms, please come back to the emergency department, please use your home pain medications to treat her pain, I have given you some nausea medication to help you through this, please follow-up with your primary care provider for a test of cure. We will call you if the antibiotic is not appropriate for your urine infection. Thank you for waiting today for all of the tests come back, I hope you feel better soon. *What to do: *Please continue to take your regular medications as directed. [x ] New medication prescriptions sent to your pharmacy: [ [facility]] [ ] New medication written as a paper prescription [ ] No new medications given *Please follow up with your primary care provider in 2-3 days, call for an appointment. Let them know you were seen in the Emergency Department and that we asked that you be seen for follow-up. We will electronically transmit a record of today's note if your PCP is in our system *If you do not have a primary care provider please contact [phone] to establish care with one of the [facility] primary care providers. *Return to Emergency Department if you should have any new, worsening, or co ncerning symptoms, such as [fever greater than 101F, chills, worsening pain, persistent vomiting or other bothersome symptoms]. Prescriptions: New promethazine 12.5 mg tablet 12.5 mg PO BID Qty: 10 0RF Rx Instructions: Please use as needed for nausea and vomiting nitrofurantoin monohyd/m-cryst [Macrobid] 100 mg capsule 100 mg PO BID 5 Days Qty: 10 0RF Rx Instructions: must administer with a meal/food phenazopyridine [Pyridium] 200 mg tablet 200 mg PO QPC PRN (Reason: pain) Qty: 7 0RF oxycodone-acetaminophen [Percocet] 5-325 mg tablet 1 tab PO Q8H PRN (Reason: pain) Qty: 10 0RF No Action prednisone 20 MG tablet 20 mg PO QAM Qty: 3 0RF ketorolac 10 MG tablet 10 mg PO Q6HP PRNQty: 10 0RF hydromorphone [Dilaudid] 2 MG tablet 2 mg PO Q6HP PRNQty: 8 0RF promethazine 25 MG tablet 25 mg PO Q6HP PRNQty: 10 0RF promethazine 25 MG tablet 25 mg PO Q6HP PRNQty: 10 0RF hydrocodone-acetaminophen [Irving] 5-325 mg tablet 1 tab PO Q6H PRN (Reason: pain) Qty: 10 0RF Stand Alone Forms: Patient Portal/API <Jose Rubio, DO - Last Filed: 06/26/22 17:30> Cosign ED Attending Cosignature Attestation: Dr Rubio Co-Sign Statement: I was available for consultation during this patient's emergency department visit. This chart is signed by myself for administrative purposes only. I did not have direct contact with this patient during this visit. They were seen independently by the APC.
--- NOTE | 2022-06-26 13:46 | PC.NURSE ---
Spoke to Erwin Hurd regarding medication orders and interactions, per Pharmacist OK to administer medications in same session.
[2022-06-26 14:16] LABS: Add Manual Diff / Slide Review NO; Basophils Absolute Auto 0 /uL (0-100); Basophils Percent Auto 0.4 % (0-2); Eosinophils Absolute Auto 200 /uL (0-450); Eosinophils Percent Auto 2.2 % (2-4); Hematocrit 40.1 % (36-46); Hemoglobin 13.2 g/dL (12.0-16.0); Lymphocytes Absolute Auto 2600 /uL (1100-4500); Lymphocytes Percent Auto 39.2 % (25-40); Mean Corpuscular HGB Conc 32.8 % (30-36); Mean Corpuscular Hemoglobin 25.5 PG (26-34); Mean Corpuscular Volume 77.6 fL (80-100); Monocytes Absolute Auto 300 /uL (0-900); Monocytes Percent Auto 4.4 % (3-14); Neutrophils Absolute Auto 3600 /uL (1500-7000); Neutrophils Percent Auto 53.8 % (50-75); Platelet Count 207 X10^3/uL (150-400); Red Blood Cell Count 5.16 X10^6/uL (4.0-5.2); Red Cell Distribution Width 15.2 % (11.6-14.8); White Blood Cell Count 6.7 X10^3/uL (4.5-11.0)
--- NOTE | 2022-06-26 14:16 | PC.NURSE ---
[employer] E[employer]OMIST notified of loss of IV, pt difficult stick and unable to obtain IV x2 tries. Per Crew HOME ECONOMIST, pt does not require line at this time and OK for a straight stick by lab, lab called.
[2022-06-26] MEDS: PROMETHAZINE 25 MG TABLET 12.5 MG PO (14:29)
[2022-06-26] MEDS: HYDROMORPHONE 2 MG TABLET PO (14:29)
[2022-06-26 14:30] LABS: Alanine Aminotransferase 69 IU/L (<35); Albumin 4.6 g/dL (3.5-5.0); Albumin Globulin Ratio 1.2 (1.0-2.8); Alkaline Phosphatase 143 U/L (38-126); Aspartate Aminotransferase 129 IU/L (14-36); BUN Creatinine Ratio 24.2 (6-22); Bilirubin Total 0.6 mg/dL (0.2-1.3); Blood Urea Nitrogen 8 mg/dL (7-17); C-Reactive Protein Quant 1.6 mg/dL (<1.0); Calcium 9.1 mg/dL (8.4-10.2); Carbon Dioxide 24 mmol/L (22-32); Chloride 101 mmol/L (98-107); Estimated Glomerular Filt Rate > 60 mL/min (>60); Globulin 3.9 g/dL (1.7-4.1); Glucose 170 mg/dL (70-100); HEMOLYSIS < 15 (0-50); Potassium 3.9 mmol/L (3.4-5.1); Sodium 139 mmol/L (137-145); Total Protein 8.5 g/dL (6.3-8.2)
[2022-06-26] MEDS: methocarbamoL 500 MG TABLET 750 MG PO (14:30)
--- NOTE | 2022-06-26 14:31 | PC.NURSE ---
Addendum entered by Radha Vigil R.N. 06/26/22 16:12: Pt reported difficulty using commode r/t pain. States I will be able to urinate at home when the pain improves. Pt denies difficulty urinating on a usual basis. Pt reports she has had straight caths in the hospital for urine in the past. Original Note: Patient attempted to void with Crew [employer], states unable and would prefer a straight catheter. Pt placed back on Room Air.
[2022-06-26 14:44] LABS: Procalcitonin 0.12 ng/mL (<0.5)
[2022-06-26 14:46] LABS: Influenza A - CEPHEID Flu A NEGATIVE (NEGATIVE); Influenza B - CEPHEID Flu B NEGATIVE (NEGATIVE); Respiratory Syncytial Virus Negative (Negative)
[2022-06-26 14:48] LABS: COVID-19 CEPHEID 4-PLEX PCR Negative (Negative)
[2022-06-26] MEDS: PHENAZOPYRIDINE 100 MG TABLET 200 MG PO (16:05)
[2022-06-26] MEDS: KETOROLAC 30 MG/ML VIAL IM (16:05)
[2022-06-26 16:10] LABS: Bacteria Urine Many (>30); Culture Indicated Urine Cult Not Indicated; RBC Urine None Seen (0-5/HPF); Squamous Epithelial Cell Urine 1-5 /HPF (0-5/HPF); WBC Urine 0-1/HPF (0-5/HPF)
--- NOTE | 2022-06-26 16:13 | PC.NURSE ---
Pt repositioning self on stretcher, tolerating water by mouth.
[2022-06-26] MEDS: NITROFURANTOIN ER 100 MG CAPSULE PO (16:55)
== END 2022-06-26 17:12 | disposition home or self-care (01) ==
PROVIDERS: Emergency Provider Nurse Practitioner Critical Care Medicine
DX: N30.00 Acute cystitis without hematuria (principal); E86.0 Dehydration; M25.551 Pain in right hip; R07.9 Chest pain, unspecified; W18.30XA Fall on same level, unspecified, initial encounter; Z20.822 Contact with and (suspected) exposure to COVID-19
CPT/HCPCS: 0241U; 36415; 51701; 71101; 73502; 80053; 81003; 81015; 81025; 84145; 85025; 86140; 87077; 87086; 87186; 93005; 96372; 99284; J1885

== ENCOUNTER → 2022-11-13 10:57 | Outpatient (CLI) | payer OTHER, SELFPAY ==
--- NOTE | 2022-11-13 11:04 | DI.US.S_ITS ---
PROCEDURE: US ABDOMEN COMPLETE INDICATIONS: UPPER ABDOMINAL PAIN TECHNIQUE: Real-time scanning was performed of the abdominal and retroperitoneal organs, with image documentation. COMPARISON: [facility], CT, CT KUB, 02/06/2021, 18:55. [facility], US, ABDOMEN COMPLETE, 03/10/2016, 18:49. FINDINGS: Liver: Enlarged, measuring 19.7 cm. Increased liver echogenicity. Hyperechoic lesion in the medial right lower lobe measuring 1.1 cm. Gallbladder: Unremarkable. Biliary ducts: Intrahepatic bile ducts are non-dilated. Extrahepatic bile duct caliber measures 10.7 mm. Normal is 6-7 mm or less in diameter, or 10 mm or less post-cholecystectomy. Pancreas: Visualized portions of the pancreas are sonographically normal. Spleen: Enlarged, measuring 18 cm. Kidneys: Kidneys are normal in size and echotexture. Right kidney measures 14.2 cm long; left kidney measures 14.6 cm long. No hydronephrosis or nephrolithiasis. No solid masses. Aorta: Visualized aorta is normal in caliber at less than 3 cm. Iliacs: Proximal common iliac arteries are normal in caliber at less than 2.5 cm. IVC: Intrahepatic inferior vena cava is patent. Miscellaneous: Between the gallbladder and aorta, there is a lobulated hyperechoic region measuring 6.6 x 2.1 cm, with posterior dirty shadowing favoring gas distended bowel. IMPRESSION: Enlarged, fatty liver. 1.1 cm hyperechoic lesion in the right hepatic lobe. Normally, this would likely represent a hemangioma. However, given the presence of liver disease, consider further characterization with MRI or multiphasic CT (liver mass protocol). Splenomegaly, likely due to underlying liver disease. Lymphoproliferative disorder not excluded. Between the gallbladder and aorta, there is a hyperechoic region measuring 6.6 x 2.1 cm, with posterior thirty shadowing favoring gas distended bowel. Attention on follow-up. Dictated by: Naldo Norton M.D. on 11/13/2022 at 13:04 Approved by: Naldo Norton M.D. on 11/13/2022 at 13:11
== END ==
PROVIDERS: Referring Provider Physician Assistant; Visit Provider Physician Assistant
DX: K76.0 Fatty (change of) liver, not elsewhere classified (principal); K76.9 Liver disease, unspecified; R10.10 Upper abdominal pain, unspecified; R71.8 Other abnormality of red blood cells; R16.1 Splenomegaly, not elsewhere classified
CPT/HCPCS: 76700

== ENCOUNTER → 2022-11-25 12:31 | Outpatient (CLI) | payer OTHER, SELFPAY ==
[2022-11-25 13:16] LABS: Add Manual Diff / Slide Review NO; Basophils Absolute Auto 0 /uL (0-100); Basophils Percent Auto 0.3 % (0-2); Eosinophils Absolute Auto 200 /uL (0-450); Eosinophils Percent Auto 2.6 % (2-4); Hematocrit 38.2 % (36-46); Hemoglobin 12.7 g/dL (12.0-16.0); Lymphocytes Absolute Auto 3200 /uL (1100-4500); Lymphocytes Percent Auto 44.1 % (25-40); Mean Corpuscular HGB Conc 33.2 % (30-36); Mean Corpuscular Hemoglobin 26.6 PG (26-34); Monocytes Absolute Auto 400 /uL (0-900); Neutrophils Absolute Auto 3400 /uL (1500-7000); Platelet Count 212 X10^3/uL (150-400); Red Blood Cell Count 4.77 X10^6/uL (4.0-5.2); Red Cell Distribution Width 15.3 % (11.6-14.8); White Blood Cell Count 7.2 X10^3/uL (4.5-11.0)
[2022-11-25 13:35] LABS: Alanine Aminotransferase 48 IU/L (<35); Albumin 4.5 g/dL (3.5-5.0); Albumin Globulin Ratio 1.2 (1.0-2.8); Alkaline Phosphatase 150 U/L (38-126); Aspartate Aminotransferase 70 IU/L (14-36); Bilirubin Total 0.6 mg/dL (0.2-1.3); Bilirubin Unconjugated 0.3 mg/dL (0.0-1.1); Globulin 3.8 g/dL (1.7-4.1); HEMOLYSIS < 15 (0-50); Total Protein 8.3 g/dL (6.3-8.2)
[2022-11-25 13:36] LABS: HEMOLYSIS < 15 (0-50); Iron 90 ug/dL (37-170)
[2022-11-25 13:47] LABS: Percent Iron Saturation 21 % (15-50); Total Iron Binding Capacity 434 ug/dL (265-497); Transferrin 314 mg/dL (206-381)
[2022-11-25 14:11] LABS: Ferritin 24 ng/mL (6-137)
== END ==
PROVIDERS: Referring Provider Physician Assistant; Visit Provider Physician Assistant
DX: R71.8 Other abnormality of red blood cells (principal)
CPT/HCPCS: 36415; 80076; 82728; 83540; 83550; 85025

== ENCOUNTER 2022-11-25 12:50 | Day surgery (SDC) | payer OTHER, SELFPAY ==
[2022-11-25] VITALS (9 sets, daily range): BP systolic 114–155; BP diastolic 72–101; PULSE 101–109; RESP 14–23; TEMP 36.1–36.6; O2SAT 93–96; BMI 42.9
--- NOTE | 2022-11-25 | PATH_ITS ---
[facility] Accession Number: [id number] No. of containers..01 Tissue . 01 Material submitted: . stomach - ANTRUM . 01 Diagnosis: Stomach, Antrum, Biopsy: Antral mucosa with reactive gastropathy and intestinal metaplasia. Negative for Helicobacter by immunohistochemistry. Negative for dysplasia and malignancy. [facility] 12/02/2022 1422 Local . 01 Electronically signed: . Cintia Gonzalez MD, Pathologist NPI- [id number] . 01 Gross description: . The specimen is received in formalin labeled with the patient's name, , and antrum, and consists of three baht soft tissue fragments ranging from 0.3 cm to 0.4 cm in greatest dimension. Submitted entirely in cassette A1. ([id number]) /FRR 11/28/2022 1432 Local . 01 Microscopic: . An immunohistochemical stain was performed to evaluate for Helicobacter organisms and is negative. The control stain showed appropriate reactivity. . An AB/PAS stain is performed to evaluate for intestinal metaplasia and is positive. The control stain showed appropriate reactivity. . * This test was developed and its performance characteristics determined by [facility]. It has not been cleared or approved by the U.S. Food and Drug Administration. The FDA has determined that such clearance or approval is not necessary. This test is used for clinical purposes. It should not be regarded as investigational or for research. . 01 Pathologist provided ICD-10: K21.9 . 01 CPT . 298034, 341205, T43927 Specimen Comment: A courtesy copy of this report has been sent to [phone] Performed at: 01 [facility] [address] [place] [address] [address] [facility], [place], [place] [id number] MD Norbert Feldman MD Phone: [phone]
[2022-11-25] MEDS: LACTATED RINGERS 1,000 ML 84 ML IV ×2 (13:30→16:07)
--- NOTE | 2022-11-25 13:53 | P.HP_ITS ---
History of Present Illness History of Present Illness Date Patient Seen: 11/25/22 Time Patient Seen: 13:53 Chief complaint: SDC Narrative: I reviewed the recent clinic note by Brad Mckeon. No significant change. [facility] Medical History Bipolar 1 disorder Depression Night terrors, adult Social History household members: friend(s) Smoking Status: Former smoker alcohol intake: current Meds Home Medications and Allergies Home Medications Medication Instructions Recorded Confirmed Type conjugated estrogens 0.625 mg 0.625 mg PO DAILY 11/25/22 11/25/22 History tablet (Premarin) lamotrigine 200 mg tablet 200 mg PO BID 11/25/22 11/25/22 History (Lamictal) rabeprazole 20 mg tablet,delayed 20 mg PO DAILY 11/25/22 11/25/22 History release Allergies Allergy/AdvReac Type Severity Reaction Status Date / Time azithromycin [From Zithromax] Allergy Severe Anaphylaxis Verified 11/25/22 13:14 Sulfa (Sulfonamide Allergy Severe NAUSEA, Verified 11/25/22 13:06 Antibiotics) ITCHING [SULFA (SULFONAMIDE ANTIBIOTICS)] codeine [CODEINE] Allergy Mild NAUSEA, Verified 11/25/22 13:06 ITCHING cephalexin [CEPHALEXIN] Allergy Unknown NAUSEA/VOMI Verified 11/25/22 13:06 TING levofloxacin [LEVOFLOXACIN] Allergy Unknown N/V, Verified 11/25/22 13:06 DIARRHEA, HEADACHE amoxicillin [AMOXICILLIN] AdvReac Intermediate YEAST Verified 11/25/22 13:06 INFECTION Review of Systems Review of Systems ROS: Yes All systems reviewed with the patient and are negative except as otherwise documented Exam Vital Signs (past 8 hours): - 11/25/22 13:19 Temperature 97.6 F Pulse Rate 109 H Respiratory Rate 19 Blood Pressure 155/101 H Pulse Oximetry 96 Oxygen Delivery Method Room Air Oxygen Delivery Method Room Air Const General: cooperative HENMT Head: normal to inspection Eyes General: appearance normal, both eyes and all related structures Neck Neck: normal visual inspection Chest Chest: normal inspection of the chest Resp Effort & Inspection: normal respiratory effort Cardio Rate: regular rate GI Inspection: normal to inspection Skin General: no rashes or lesions noted Neuro General: patient alert and patient awake Extrem General: normal to inspection and no pedal edema Psych Appearance: grossly normal Assessment & Plan Assessment & Plan narrative: 41-year-old female with recurrent symptoms of GERD hematemesis globus sensation despite PPI. Diagnostic EGD is pursued today.
--- NOTE | 2022-11-25 15:24 | PM.OP.EGD ---
Operative Date/Time/Diagnoses Date of procedure: 11/25/22 Time of procedure: 15:24 Pre-op diagnosis: Hematemesis and globus Post-op diagnosis: same Procedure & Clinicians Study performed: EGD with biopsies Same procedure as scheduled: Yes Indications: Hematemesis and globus Surgeon: Neno Alford Procedure Notes SCOAP/Timeout: Done Procedure in detail: After the risks and benefits were explained, written and verbal informed consent was obtained. The patient was brought into the procedure room and placed into the left lateral decubitus position. Please see anesthesia notes for sedation details. The scope was introduced into the mouth through the bite block and advanced under direct visualization to the 2nd portion of the duodenum. The scope was slowly withdrawn carefully examining the mucosa for any defects or lesions. Retroflexed views were accomplished in the stomach. The stomach was decompressed, the scope was then removed from the patient who tolerated the procedure well. Sedation minutes: 7 Complications: none Impression: 1. Duodenum: This was normal from the bulb through the 2nd portion. 2. Stomach: The patient had an erosive moderate gastropathy characterized by erythema and subtle eroded nodules all throughout the antrum. A few of these areas were sampled for histopathology and exclusion of H pylori. Otherwise no ulcers no outlet obstruction no mass lesions including retroflexed views of the LES. 3. Esophagus: The squamocolumnar junction correlated nicely with the top of the gastric folds. GEJ was at 40 cm from the incisors. No acute erosive changes no strictures no mass lesions no mucosal anomalies identified throughout the esophagus. Endoscopic diagnosis: Erosive gastropathy Post-procedure Plan for aftercare: 1. Await histopathology 2. If Helicobacter is found, it will need to be eradicated with combination therapy recognizing the patient has allergies to erythromycin levofloxacin amoxicillin and sulfa. Disposition: PACU
--- NOTE | 2022-11-25 15:44 | SUR.PHASEII ---
Lexx MANZANARES notified in Endo suite of patient post procedure nausea and patient stating that zofran and phenergan are ineffective. See new order for compazine
[2022-11-25] MEDS: PROCHLORPERAZINE 10 MG/2 ML VIAL IV (16:08)
--- NOTE | 2022-11-25 16:13 | SUR.PHASEII ---
Lexx ROVING SIZER at bedside prior to giving compazine per Lexx request to clarify compazine. 5mg given per Lexx order. Pt stated multiple times it is compazine that is effective for her nausea.
== END 2022-11-25 16:34 | disposition home or self-care (01) ==
PROVIDERS: Referring Provider Internal Medicine Gastroenterology; Visit Provider Internal Medicine Gastroenterology
PROC: 0DJ08ZZ Inspection of Upper Intestinal Tract, Via Natural or Artificial Opening Endoscopic (ICD-10-PCS; CPT 43235; principal; 2022-11-25 15:00)
DX: K92.0 Hematemesis (principal); F45.8 Other somatoform disorders; K31.89 Other diseases of stomach and duodenum; R71.8 Other abnormality of red blood cells
CPT/HCPCS: 43239; 36415; 80076; 82728; 83540; 83550; 85025; J0780; J2704

== ENCOUNTER 2023-06-16 11:51 | Day surgery (SDC) | payer OTHER, SELFPAY ==
--- NOTE | 2023-06-16 13:15 | P.HP_ITS ---
History of Present Illness History of Present Illness Date Patient Seen: 06/16/23 Chief complaint: SDC Narrative: Loose stools history of intestinal metaplasia in the stomach rule out colitis rule out celiac [facility] Medical History Night terrors, adult Bipolar 1 disorder Depression Social History household members: friend(s) Smoking Status: Former smoker alcohol intake: current Meds Home Medications and Allergies Home Medications Medication Instructions Recorded Confirmed Type conjugated estrogens 0.625 mg 0.625 mg PO DAILY 11/25/22 11/25/22 History tablet (Premarin) lamotrigine 200 mg tablet 200 mg PO BID 11/25/22 11/25/22 History (Lamictal) rabeprazole 20 mg tablet,delayed 20 mg PO DAILY 11/25/22 11/25/22 History release Allergies Allergy/AdvReac Type Severity Reaction Status Date / Time azithromycin [From Zithromax] Allergy Severe Anaphylaxis Verified 11/25/22 13:14 Sulfa (Sulfonamide Allergy Severe NAUSEA, Verified 11/25/22 13:06 Antibiotics) ITCHING [SULFA (SULFONAMIDE ANTIBIOTICS)] codeine [CODEINE] Allergy Mild NAUSEA, Verified 11/25/22 13:06 ITCHING cephalexin [CEPHALEXIN] Allergy Unknown NAUSEA/VOMI Verified 11/25/22 13:06 TING levofloxacin [LEVOFLOXACIN] Allergy Unknown N/V, Verified 11/25/22 13:06 DIARRHEA, HEADACHE amoxicillin [AMOXICILLIN] AdvReac Intermediate YEAST Verified 11/25/22 13:06 INFECTION Exam Narrative Exam Narrative: Oropharynx free of lesions Chest clear to auscultation percussion Cardiac exam reveals no S3 or murmur Assessment & Plan Assessment & Plan narrative: Abnormal bowel movements need for colonoscopy with biopsy along with EGD and biopsy. Will also map any obvious changes intestinal metaplasia. Risks, benefits, alternatives have been explained.
--- NOTE | 2023-06-16 13:16 | PM.OP.EC ---
Operative Date/Time/Diagnoses Date of procedure: 06/16/23 Pre-op diagnosis: See indication and findings Procedure & Clinicians Study performed: EGD with biopsy and colonoscopy with biopsy Indications: Loose stools and history of gastric intestinal metaplasia Surgeon: Shailesh Mendez Procedure Notes Procedure in detail: After informed consent was obtained the patient was placed in left lateral decubitus position. The video upper scope was placed into the oropharynx and with the patient's help swelled into the esophagus. The esophagus stomach and duodenum were carefully examined. On withdrawal, retroflexed view the GE junction was performed. The scope was removed. The patient tolerated procedure well. The patient was then turned and the colonoscope substituted. This easily passed the cecum. Preparation was good. On slow withdrawal mucosa was carefully examined. The scope was removed. The patient tolerated procedure well. Blood loss none Complications none Sedation mac Findings EGD 1. Normal esophagus 2. Generally erythematous stomach but no clear areas of abnormal mucosa. Random biopsies were taken primarily to rule out Helicobacter 3. Normal duodenal bulb and sweep biopsies taken to rule out celiac Colonoscopy 1. Normal colonoscopy to cecum. Random biopsies taken to rule out microscopic colitis 2. Unable to easily entered they terminal ileum. Follow-up with christiano Mckeon at our office at least by telephone to determine next steps.
[2023-06-16 13:20] VITALS: BP 132/92; PULSE 103; RESP 19; TEMP 36.4; O2SAT 96
[2023-06-16] MEDS: LACTATED RINGERS 1,000 ML 42 ML IV (13:47)
[2023-06-16 14:32] VITALS: BP 129/86; PULSE 111; RESP 14; TEMP 36.2; O2SAT 96
[2023-06-16 14:36] VITALS: BP 123/89; PULSE 103; RESP 17; O2SAT 97
[2023-06-16 14:42] VITALS: BP 131/97; PULSE 102; RESP 18; TEMP 36.4; O2SAT 97
[2023-06-16 14:47] VITALS: BP 129/90; PULSE 100; RESP 16; O2SAT 96
--- NOTE | 2023-06-16 14:52 | PATH_ITS ---
[facility] Accession Number: [id number] No. of containers..03 Tissue . 01 Material submitted: . PART A: duodenum - DUODENAL BIOPSY PART B: gastrointestinal site - GASTRIC BIOPSY PART C: colon - RANDOM COLON . 01 Clinical history: . B: H.PYLORI . 01 Diagnosis: A. Duodenum, Biopsy: Small bowel mucosa with no diagnostic abnormality. Negative for active inflammation, features of sprue, dysplasia, or malignancy. . B. Stomach, Biopsy: Gastric body mucosa with no diagnostic abnormality. No evidence of Helicobacter organisms on H/E stain. Negative for intestinal metaplasia. Negative for dysplasia or malignancy. . C. Random Colon, Biopsy: Colonic mucosa with no diagnostic abnormality. Negative for active, chronic, and microscopic colitis. Negative for dysplasia and malignancy. . [facility] 06/21/2023 1524 Local . 01 Electronically signed: . Joesph Stover MD, PhD, Pathologist NPI- [id number] . 01 Gross description: . Part A: DUODENAL BIOPSY: Received in formalin are 2 fragment(s) of bhat, soft tissue measuring 0.2 x 0.2 x 0.2 cm to 0.3 x 0.2 x 0.2 cm submitted entirely in 1 cassette(s) Part B: GASTRIC BIOPSY: Received in formalin is 1 fragment(s) of bhat, soft tissue measuring 0.2 x 0.2 x 0.2 cm submitted entirely in 1 cassette(s) Part C: RANDOM COLON: Received in formalin are 4 fragment(s) of bhat, soft tissue measuring 0.1 x 0.1 x 0.1 cm to 0.4 x 0.3 x 0.2 cm submitted entirely in 1 cassette(s) /NUPUR 06/17/20232024 Local . 01 Pathologist provided ICD-10: K21.9, R19.7 . 01 CPT . 277622, 776516, 171434 Specimen Comment: A courtesy copy of this report has been sent to [phone] Performed at: 01 [facility] [address] [place] [id number] MD Norbert Feldman MD Phone: [phone]
== END 2023-06-16 14:55 | disposition home or self-care (01) ==
PROVIDERS: Referring Provider Internal Medicine Gastroenterology; Visit Provider Internal Medicine Gastroenterology
PROC: 0DJ08ZZ Inspection of Upper Intestinal Tract, Via Natural or Artificial Opening Endoscopic (ICD-10-PCS; CPT 43235; principal; 2023-06-16 13:30)
PROC: 0DJD8ZZ Inspection of Lower Intestinal Tract, Via Natural or Artificial Opening Endoscopic (ICD-10-PCS; CPT 45378; 2023-06-16 13:30)
DX: R19.7 Diarrhea, unspecified (principal); K59.04 Chronic idiopathic constipation; K21.9 Gastro-esophageal reflux disease without esophagitis; Z87.19 Personal history of other diseases of the digestive system
CPT/HCPCS: 45380; 43239; J2405; J2704; J3010

== ENCOUNTER 2024-07-04 07:44 | Emergency (ER) | payer OTHER, SELFPAY ==
[2024-07-04 07:47] VITALS: BP 137/95; PULSE 89; RESP 16; TEMP 36.4; O2SAT 97
[2024-07-04 07:55] VITALS: BP 137/95; PULSE 87; RESP 16; O2SAT 97
[2024-07-04 08:23] LABS: Appearance Urine UA CLOUDY; Bacteria Urine Moderate (10-30); Color Urine UA RED; RBC Urine 30-100/HPF (0-5/HPF); Squamous Epithelial Cell Urine 10-30 /HPF (0-5/HPF); Urine Volume 10mL (spun); WBC Urine 30-100/HPF (0-5/HPF)
[2024-07-04 08:24] LABS: Culture Indicated Urine Specimen Cultured
[2024-07-04 10:17] LABS: Add Manual Diff / Slide Review NO; Basophils Absolute Auto 0 /uL (0-100); Basophils Percent Auto 0.4 % (0-2); Eosinophils Absolute Auto 0 /uL (0-450); Hematocrit 37.4 % (36-46); Hemoglobin 12.5 g/dL (12.0-16.0); Lymphocytes Absolute Auto 3900 /uL (1100-4500); Lymphocytes Percent Auto 54.3 % (25-40); Mean Corpuscular HGB Conc 33.5 % (30-36); Mean Corpuscular Hemoglobin 27.5 PG (26-34); Mean Corpuscular Volume 82.3 fL (80-100); Monocytes Absolute Auto 400 /uL (0-900); Monocytes Percent Auto 4.9 % (3-14); Neutrophils Absolute Auto 2900 /uL (1500-7000); Neutrophils Percent Auto 40.4 % (50-75); Platelet Count 171 X10^3/uL (150-400); Red Blood Cell Count 4.54 X10^6/uL (4.0-5.2); Red Cell Distribution Width 15.3 % (11.6-14.8); White Blood Cell Count 7.2 X10^3/uL (4.5-11.0)
[2024-07-04 10:29] LABS: Alanine Aminotransferase 29 IU/L (<35); Albumin 4.5 g/dL (3.5-5.0); Albumin Globulin Ratio 1.3 (1.0-2.8); Alkaline Phosphatase 87 U/L (38-126); Aspartate Aminotransferase 31 IU/L (14-36); BUN Creatinine Ratio 23.8 (6-22); Bilirubin Total 0.7 mg/dL (0.2-1.3); Blood Urea Nitrogen 15 mg/dL (7-17); Calcium 9.6 mg/dL (8.4-10.2); Carbon Dioxide 26 mmol/L (22-32); Chloride 108 mmol/L (98-107); Estimated Glomerular Filt Rate > 60 mL/min (>60); Globulin 3.6 g/dL (1.7-4.1); Glucose 101 mg/dL (70-100); HEMOLYSIS < 15 (0-50); Potassium 3.9 mmol/L (3.4-5.1); Sodium 143 mmol/L (137-145); Total Protein 8.1 g/dL (6.3-8.2)
--- NOTE | 2024-07-04 10:34 | PC.NURSE ---
Pt says that she is having pain at urethra. Pt sitting up in [facility], looking at iPad.
--- NOTE | 2024-07-04 12:01 | ED_ITS ---
HPI - Female Genitourinary <Janee Au PA-C - Last Filed: 07/04/24 17:15> General Chief complaint: Urogenital-Female Stated complaint: per pt prolapsed bladder Time Seen by Provider: 07/04/24 11:29 Source: patient Mode of arrival: Family Vehicle History of Present Illness HPI Narrative: 43-year-old female with past medical history frequent UTIs, interstitial cystitis, kidney stones, bipolar disorder presents to the ED with a days of dysuria. Patient states her symptoms started 8 days ago with dysuria, urethral pain, generalized lower abdominal pain. Patient also endorses a history of prolapsed bladder. Patient is status post complete hysterectomy. Patient also endorses chills, nausea. No fever, chest pain, shortness of breath, vomiting, lightheadedness, dizziness, syncope. Patient was seen at [facility] on 07/02/2024, diagnosed with a UTI, given a 1 time dose of fosfomycin since patient is allergic to a lot of other common antibiotics. Patient states that her symptoms have worsened since then, she is taking Pyridium every 4 hours with no relief. Related Data Home Medications Medication Instructions Recorded Confirmed lamotrigine 200 mg tablet 200 mg PO DAILY 11/25/22 06/16/23 (Lamictal) rabeprazole 20 mg tablet,delayed 20 mg PO DAILY 11/25/22 06/16/23 release acetazolamide 250 mg tablet 250 - 500 mg PO BID 06/16/23 06/16/23 alprazolam 2 mg tablet 2 mg PO BID PRN Anxiety 06/16/23 06/16/23 ibuprofen 800 mg tablet 400 mg PO Q6H PRN Headache 06/16/23 06/16/23 lumateperone 42 mg capsule 42 mg PO DAILY 06/16/23 06/16/23 (Caplyta) Previous Rx's Medication Instructions Recorded cefpodoxime 200 mg tablet 200 mg PO Q12H 10 days #20 tabs 07/04/24 oxycodone 5 mg capsule 5 mg PO Q6H PRN pain 3 days #12 07/04/24 caps Allergies Allergy/AdvReac Type Severity Reaction Status Date / Time azithromycin [From Zithromax] Allergy Severe Anaphylaxis Verified 06/16/23 13:27 Sulfa (Sulfonamide Allergy Severe NAUSEA, Verified 06/16/23 13:27 Antibiotics) ITCHING [SULFA (SULFONAMIDE ANTIBIOTICS)] codeine [CODEINE] Allergy Mild NAUSEA, Verified 06/16/23 13:27 ITCHING cephalexin [CEPHALEXIN] Allergy Unknown NAUSEA/VOMI Verified 06/16/23 13:27 TING levofloxacin [LEVOFLOXACIN] Allergy Unknown N/V, Verified 06/16/23 13:27 DIARRHEA, HEADACHE amoxicillin [AMOXICILLIN] AdvReac Intermediate YEAST Verified 06/16/23 13:27 INFECTION Review of Systems <Janee Au PA-C - Last Filed: 07/04/24 17:15> Constitutional Constitutional: Reports chills, Denies fatigue, Denies fever(s), Denies frequent falls, Denies lethargy and Denies weakness Eyes Eyes: Denies change in vision, Denies eye discharge, Denies irritation and Denies loss of vision ENT Ears, Nose, Mouth, and Throat: Denies change in voice, Denies dizziness, Denies neck pain, Denies sore throat and Denies throat swelling Cardiovascular Cardiovascular: Denies chest pain, Denies irregular heart rhythm, Denies lightheadedness, Denies palpitations, Denies dyspnea, Denies dyspnea on exertion and Denies orthopnea Respiratory Respiratory: Denies cough, Denies dyspnea, Denies dyspnea on exertion and Denies wheezing Gastrointestinal Gastrointestinal: Reports abdominal pain, Denies change in bowel habits, Denies diarrhea, Reports nausea and Denies vomiting Genitourinary Genitourinary: Reports dysuria Comments: Urethral pain Musculoskeletal Musculoskeletal: Denies neck pain and Denies numbness Integumentary/Breasts Skin/Breast: Denies pruritus, Denies erythema, Denies rash and Denies wounds Neurologic Neurologic: Denies behavioral changes, Denies confusion, Denies dizziness, Denies frequent falls, Denies loss of vision, Denies numbness and Denies weakness Psychiatric Psychiatric: Denies anxiety, Denies behavioral changes, Denies confusion, Denies depression, Denies homicidal ideation and Denies suicidal ideation Endocrine Endocrine: Denies fatigue, Denies flushing and Denies palpitations Hematologic/Lymphatic Hematologic/Lymphatic: Denies easy bruising Allergic/Immunologic Allergic/Immunologic: Denies urticaria, Denies throat swelling and Denies wheezing Patient History <BRITTANY Marti Last Filed: 07/04/24 17:15> Medical History (Updated 07/04/24 @ 15:05 by Janee Au PA-C) Night terrors, adult Bipolar 1 disorder Depression tobacco type: cigarettes Exam <Janee Au PA-C - Last Filed: 07/04/24 17:15> Narrative Exam Narrative: Const General:?cooperative, healthy appearing and comfortable [facility] Head:?normal to inspection Ears:?hearing grossly normal bilaterally Nose:?external nose normal Face and sinus:?normal facial exam and sinuses nontender Mouth:?oral mucosae normal Throat:?posterior oropharynx normal Eyes General:?appearance normal, both eyes and all related structures Neck Neck:?normal visual inspection and no lymphadenopathy noted Resp Effort & Inspection:?normal respiratory effort Auscultation:?clear to auscultation bilaterally Cardio Rate:?regular rate Rhythm:?regular rhythm GI Abdomen is soft, nondistended. Tenderness to palpation in the lower quadrants. There is bilateral CVA tenderness. Neuro General:?patient alert, patient awake and patient oriented x3 Initial Vital Signs Initial Vital Signs: Vital Signs Temperature 97.6 F 07/04/24 07:47 Pulse Rate 89 07/04/24 07:47 Respiratory Rate 16 07/04/24 07:47 Blood Pressure 137/95 H 07/04/24 07:47 Pulse Oximetry 97 07/04/24 07:47 Oxygen Delivery Method Room Air 07/04/24 07:47 <Jesús David MD - Last Filed: 07/04/24 22:08> Initial Vital Signs Initial Vital Signs: Vital Signs Temperature 97.6 F 07/04/24 07:47 Pulse Rate 89 07/04/24 07:47 Respiratory Rate 16 07/04/24 07:47 Blood Pressure 137/95 H 07/04/24 07:47 Pulse Oximetry 97 07/04/24 07:47 Oxygen Delivery Method Room Air 07/04/24 07:47 Course <Janee Au PA-C - Last Filed: 07/04/24 17:15> Orders Ordered: Discontinued Medications Ceftriaxone Sodium 1,000 mg/ (Sodium Chloride) 100 mls @ 200 mls/hr IV NOW ONE Stop: 07/04/24 13:35 Last Infusion: 07/04/24 14:28 Dose: Infused Documented By: Admin: 07/04/24 13:47 Dose: 200 mls/hr Documented By: ASHLEY Ketorolac Tromethamine (Ketorolac 30 Mg/Ml Vial) 15 mg IV NOW ONE Stop: 07/04/24 11:55 Last Admin: 07/04/24 12:06 Dose: 15 mg Documented By: SARY Prochlorperazine (Prochlorperazine 10 Mg/2 Ml Vial) 5 mg IV NOW ONE Stop: 07/04/24 11:55 Last Admin: 07/04/24 12:06 Dose: 5 mg Documented By: SARY Vital Signs Vital signs: Vital Signs - 8 hr 07/04/24 14:00 Temperature 97.5 F L Pulse Rate 79 Respiratory Rate 14 Blood Pressure 118/62 Pulse Oximetry 96 Oxygen Delivery Method Room Air <Jesús David MD - Last Filed: 07/04/24 22:08> Orders Ordered: Discontinued Medications Ceftriaxone Sodium 1,000 mg/ (Sodium Chloride) 100 mls @ 200 mls/hr IV NOW ONE Stop: 07/04/24 13:35 Last Infusion: 07/04/24 14:28 Dose: Infused Documented By: Admin: 07/04/24 13:47 Dose: 200 mls/hr Documented By: ASHLEY Ketorolac Tromethamine (Ketorolac 30 Mg/Ml Vial) 15 mg IV NOW ONE Stop: 07/04/24 11:55 Last Admin: 07/04/24 12:06 Dose: 15 mg Documented By: SARY Prochlorperazine (Prochlorperazine 10 Mg/2 Ml Vial) 5 mg IV NOW ONE Stop: 07/04/24 11:55 Last Admin: 07/04/24 12:06 Dose: 5 mg Documented By: SARY Vital Signs Vital signs: Vital Signs - 8 hr 07/04/24 14:00 Temperature 97.5 F L Pulse Rate 79 Respiratory Rate 14 Blood Pressure 118/62 Pulse Oximetry 96 Oxygen Delivery Method Room Air MDM - Female Genitourinary <Janee Au PA-C - Last Filed: 07/04/24 17:15> Lab Data 07/04/24 10:05 07/04/24 10:05 Labs: Lab Results 07/04/24 07/04/24 Range/Units 08:07 10:05 WBC 7.2 (4.5-11.0) X10^3/uL RBC 4.54 (4.0-5.2) X10^6/uL Hgb 12.5 (12.0-16.0) g/dL Hct 37.4 (36-46) % MCV 82.3 (80-100) fL MCH 27.5 (26-34) PG MCHC 33.5 (30-36) % RDW 15.3 H (11.6-14.8) % Plt Count 171 (150-400) X10^3/uL Neut % (Auto) 40.4 L (50-75) % Lymph % (Auto) 54.3 H (25-40) % Spencer % (Auto) 4.9 (3-14) % Eos % (Auto) 0.0 L (2-4) % Baso % (Auto) 0.4 (0-2) % Neut # (Auto) 2900 (3496-8423) /uL Lymph # (Auto) 3900 (9044-1555) /uL Spencer # (Auto) 400 (0-900) /uL Eos # (Auto) 0 (0-450) /uL Baso # (Auto) 0 (0-100) /uL Sodium 143 (137-145) mmol/L Potassium 3.9 (3.4-5.1) mmol/L Chloride 108 H (98-107) mmol/L Carbon Dioxide 26 (22-32) mmol/L BUN 15 (7-17) mg/dL Creatinine 0.63 (0.52-1.04) mg/dL Estimated GFR > 60 (>60) mL/min BUN/Creatinine Ratio 23.8 H (6-22) Glucose 101 H (70-100) mg/dL Calcium 9.6 (8.4-10.2) mg/dL Total Bilirubin 0.7 (0.2-1.3) mg/dL AST 31 (14-36) IU/L ALT 29 (<35) IU/L Alkaline Phosphatase 87 (38-126) U/L Total Protein 8.1 (6.3-8.2) g/dL Albumin 4.5 (3.5-5.0) g/dL Globulin 3.6 (1.7-4.1) g/dL Albumin/Globulin Ratio 1.3 (1.0-2.8) Urine Color Red Urine Appearance Cloudy Urine pH TNP Ur Specific [place] TNP Urine Protein TNP Urine Glucose (UA) TNP Urine Ketones TNP Urine Occult Blood TNP Urine Nitrate TNP Urine Bilirubin TNP Urine Urobilinogen TNP Ur Leukocyte Esterase TNP Urine RBC 30-100/hpf H (0-5/HPF) Urine WBC 30-100/hpf H (0-5/HPF) Ur Squamous Epith Cells 10-30 /hpf H D (0-5/HPF) Urine Bacteria Moderate (10-30) H (None) Ur Culture Indicated? Specimen cultured Vol Urine Centrifuged 10ml (spun) MDM Narrative Medical decision making narrative: 43-year-old female with past medical history frequent UTIs, interstitial cystitis, kidney stones, bipolar disorder presents to the ED with a days of dysuria. Concern for persistent UTI versus pyelonephritis versus kidney stones versus interstitial cystitis versus bladder prolapse versus other intra- abdominal pathology versus other. Will obtain labs, UA, CT abdomen pelvis. Patient given Compazine and ketorolac for symptoms. Will reassess. Labs within normal limits. UA with urine 30-100 RBC, 3-[address] abdomen pelvis shows a diffuse bladder wall thickening with perivascular fat stranding concerning for cystitis. No renal stones or hydronephrosis. No hydroureter. Normal appendix. No bowel obstruction or abnormal bowel wall thickening. Sigmoid diverticulosis without CT evidence of acute diverticulitis. No free fluid or free air. It appears that patient's reaction to cephalexin was a rash. She is unclear if she has had ceftriaxone in the past. Will trial a dose of IV ceftriaxone in the ED and observe. Patient tolerated the ceftriaxone with no adverse reactions. Prescribed cefpodoxime. Discussed findings and and recommendation to follow-up with urology as soon as possible. ED return precautions were discussed with patient. Patient verbalized understanding. Medical records reviewed: Yes <Jesús David MD - Last Filed: 07/04/24 22:08> Lab Data Labs: Lab Results 07/04/24 07/04/24 Range/Units 08:07 10:05 WBC 7.2 (4.5-11.0) X10^3/uL RBC 4.54 (4.0-5.2) X10^6/uL Hgb 12.5 (12.0-16.0) g/dL Hct 37.4 (36-46) % MCV 82.3 (80-100) fL MCH 27.5 (26-34) PG MCHC 33.5 (30-36) % RDW 15.3 H (11.6-14.8) % Plt Count 171 (150-400) X10^3/uL Neut % (Auto) 40.4 L (50-75) % Lymph % (Auto) 54.3 H (25-40) % Spencer % (Auto) 4.9 (3-14) % Eos % (Auto) 0.0 L (2-4) % Baso % (Auto) 0.4 (0-2) % Neut # (Auto) 2900 (1420-2632) /uL Lymph # (Auto) 3900 (5272-5969) /uL Spencer # (Auto) 400 (0-900) /uL Eos # (Auto) 0 (0-450) /uL Baso # (Auto) 0 (0-100) /uL Sodium 143 (137-145) mmol/L Potassium 3.9 (3.4-5.1) mmol/L Chloride 108 H (98-107) mmol/L Carbon Dioxide 26 (22-32) mmol/L BUN 15 (7-17) mg/dL Creatinine 0.63 (0.52-1.04) mg/dL Estimated GFR > 60 (>60) mL/min BUN/Creatinine Ratio 23.8 H (6-22) Glucose 101 H (70-100) mg/dL Calcium 9.6 (8.4-10.2) mg/dL Total Bilirubin 0.7 (0.2-1.3) mg/dL AST 31 (14-36) IU/L ALT 29 (<35) IU/L Alkaline Phosphatase 87 (38-126) U/L Total Protein 8.1 (6.3-8.2) g/dL Albumin 4.5 (3.5-5.0) g/dL Globulin 3.6 (1.7-4.1) g/dL Albumin/Globulin Ratio 1.3 (1.0-2.8) Urine Color Red Urine Appearance Cloudy Urine pH TNP Ur Specific [place] TNP Urine Protein TNP Urine Glucose (UA) TNP Urine Ketones TNP Urine Occult Blood TNP Urine Nitrate TNP Urine Bilirubin TNP Urine Urobilinogen TNP Ur Leukocyte Esterase TNP Urine RBC 30-100/hpf H (0-5/HPF) Urine WBC 30-100/hpf H (0-5/HPF) Ur Squamous Epith Cells 10-30 /hpf H D (0-5/HPF) Urine Bacteria Moderate (10-30) H (None) Ur Culture Indicated? Specimen cultured Vol Urine Centrifuged 10ml (spun) Discharge Plan Departure Patient Disposition: Home Clinical Impression: UTI (urinary tract infection) Qualifiers: Urinary tract infection type: acute cystitis Hematuria presence: with hematuria Qualified Code(s): N30.01 - Acute cystitis with hematuria Instructions: DI for Urinary Tract Infection (UTI) Activity Restrictions/Additional Instructions: You were evaluated in the ED today for urinary symptoms. You tested positive for a urinary tract infection. Your labs were normal. The CT scan confirms the urinary tract infection. You were given a 1st dose of IV antibiotics in the ED today, which did not cause any adverse reactions and you tolerated it well. You are being prescribed cefpodoxime which is in the same family of antibiotics to continue taking at home for the next 10 days. Please continue to monitor your symptoms, stop the drug if you have any adverse effects and call 911. It is recommended that you follow-up with Dr. Richter at [facility]. You may call [phone] to make an appointment. Return to the ED if you have any worsening symptoms. Prescriptions: New oxycodone 5 mg capsule 5 mg PO Q6H PRN (Reason: pain) 3 Days Qty: 12 0RF cefpodoxime 200 mg tablet 200 mg PO Q12H 10 Days Qty: 20 0RF Rx Instructions: must administer with a meal/food No Action ibuprofen 800 mg tablet 400 mg PO Q6H PRN (Reason: Headache) acetazolamide 250 mg tablet 250 - 500 mg PO BID alprazolam 2 mg tablet 2 mg PO BID PRN (Reason: Anxiety) Caplyta 42 mg capsule 42 mg PO DAILY rabeprazole 20 mg Tablet,Delayed Release (Dr/Ec) 20 mg PO DAILY lamotrigine [Lamictal] 200 mg Tablet 200 mg PO DAILY Stand Alone Forms: Patient Portal/API/Survey ED Sign-out <Jesús David MD - Last Filed: 07/04/24 22:08> Cosign ED Attending Idania Attestation: I was immediately available in the department for consultation. This documentation has been reviewed and I agree with assessment and plan. Supervised by Jesús David MD
[2024-07-04] MEDS: KETOROLAC 30 MG/ML VIAL 15 MG IV (12:06)
[2024-07-04] MEDS: PROCHLORPERAZINE 10 MG/2 ML VIAL 5 MG IV (12:06)
--- NOTE | 2024-07-04 12:11 | DI.CT.S_ITS ---
PROCEDURE: CT ABDOMEN PELVIS W CON INDICATIONS: suprapubic pain TECHNIQUE: After the administration of intravenous contrast, axial sections acquired from the lung bases to the pubic symphysis. Coronal and sagittal reformats were performed. For radiation dose reduction, the following was used: automated exposure control, adjustment of mA and/or kV according to patient size. COMPARISON: None. FINDINGS: Image quality: Diagnostic. Lower Chest: No significant findings. ABDOMEN: Liver: Hepatomegaly. No solid mass. [id number] hepatic steatosis is seen. Gallbladder: No radiopaque gallstones or wall thickening. Biliary ducts: No biliary dilation. Pancreas: No ductal dilation. Spleen: There is splenomegaly. No discrete splenic lesion. Adrenal Glands: No adrenal nodules. Kidneys and Ureters: No hydronephrosis. No solid mass. No complex renal cystic lesion which requires follow up. Stomach and Bowel: There is no bowel obstruction. Appendix is visualized and is within normal limits. No abnormal bowel wall thickening or mesenteric fat stranding. Sigmoid diverticulosis without CT evidence of acute diverticulitis. Peritoneum: No abnormal intraperitoneal fluid. No free air. Ventral Wall: No significant ventral hernia. Abdominal Nodes: No retroperitoneal or mesenteric adenopathy by size criteria. Vessels: Aorta and inferior vena cava are normal in size. PELVIS: Pelvic Organs: There is prior hysterectomy. Bladder: Diffuse bladder wall thickening is seen with mild perivesicular fat stranding. Pelvic Nodes: No enlarged lymph nodes. Miscellaneous: No inguinal hernias are seen. Bones: No aggressive osseous abnormality. IMPRESSION: 1. Diffuse bladder wall thickening with perivesicular fat stranding concerning for cystitis. No renal stones or hydronephrosis. No hydroureter. 2. Normal appendix. No bowel obstruction or abnormal bowel wall thickening. Sigmoid diverticulosis without CT evidence of acute diverticulitis. No free fluid or free air. 3. Hepatosplenomegaly. No discrete hepatic or splenic lesion. [id number] hepatic steatosis. Dictated by: Matheus Acevedo M.D. on 07/04/2024 at 12:30 Approved by: Matheus Acevedo M.D. on 07/04/2024 at 12:43
[2024-07-04] MEDS: cefTRIAXone 1,000 MG in SODIUM CHLORIDE 0.9% 100 ML 200 MG IV (13:47)
[2024-07-04 14:00] VITALS: BP 118/62; PULSE 79; RESP 14; TEMP 36.4; O2SAT 96
== END 2024-07-04 15:14 | disposition home or self-care (01) ==
PROVIDERS: Emergency Medicine; Emergency Provider Student in an Organized Health Care Education/Training Program
DX: N30.01 Acute cystitis with hematuria (principal); R10.84 Generalized abdominal pain; Z87.442 Personal history of urinary calculi; Z88.2 Allergy status to sulfonamides
CPT/HCPCS: 36415; 74177; 80053; 81001; 85025; 87086; 96365; 96375; 99284; 99285; J0696; J0780; J1885; Q9967

== ENCOUNTER → 2024-08-02 15:18 | Outpatient (CLI) | payer OTHER, SELFPAY | PROVIDERS: PCP Family Medicine; Visit Provider Family Medicine | DX: N39.0 Urinary tract infection, site not specified (principal) | CPT/HCPCS: 87077; 87086; 87186 ==

== ENCOUNTER → 2024-09-07 09:18 | Outpatient (CLI) | payer OTHER, SELFPAY ==
[2024-09-07 10:42] LABS: C-Reactive Protein Quant < 0.5 mg/dL (<1.0); Cholesterol 170 mg/dL (140-199); HDL Cholesterol 33 mg/dL (40-60); LDL Cholesterol Calculated 96 mg/dL (<100); Triglycerides 207 mg/dL (35-150)
[2024-09-07 10:44] LABS: Erythrocyte Sedimentation Rate 29 MM/HR (0-20); Rheumatoid Factor < 8.6 IU/mL (<12.0)
[2024-09-07 11:05] LABS: TSH w/ Reflex to FT4 3.02 uIU/mL (0.47-4.68)
[2024-09-07 11:17] LABS: Ferritin 11 ng/mL (6-137)
[2024-09-08 07:11] LABS: Alpha Fetoprotein 5.1 ng/mL (0.0-6.4)
[2024-09-12 12:12] LABS: ANA Screen, IFA Negative (.)
== END ==
PROVIDERS: PCP Family Medicine; Referring Provider Family Medicine; Visit Provider Family Medicine
DX: E78.5 Hyperlipidemia, unspecified (principal); R52 Pain, unspecified; E11.9 Type 2 diabetes mellitus without complications; R16.2 Hepatomegaly with splenomegaly, not elsewhere classified; M79.7 Fibromyalgia
CPT/HCPCS: 36415; 80061; 82105; 82728; 84443; 85651; 86038; 86140; 86430

== ENCOUNTER → 2025-02-21 08:26 | Outpatient (CLI) | payer MEDICARE, OTHER, SELFPAY ==
[2025-02-21 09:56] LABS: Hemoglobin A1C% w Est Avg Glu 5.8 % (4.0-6.0)
== END ==
PROVIDERS: PCP Family Medicine; Referring Provider Family Medicine; Visit Provider Family Medicine
DX: E13.69 Other specified diabetes mellitus with other specified complication (principal); Z79.4 Long term (current) use of insulin
CPT/HCPCS: 36415; 83036

== ENCOUNTER 2025-02-27 11:59 | Emergency (ER) | payer MEDICARE, OTHER, SELFPAY ==
[2025-02-27] VITALS (20 sets, daily range): BP systolic 145–204; BP diastolic 87–134; PULSE 74–82; RESP 15–24; TEMP 37.2; O2SAT 92–98; BMI 39.4
--- NOTE | 2025-02-27 12:06 | EKG_ITS ---
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
--- NOTE | 2025-02-27 12:11 | DI.RAD.S_ITS ---
PROCEDURE: XR CHEST 1V INDICATIONS: Chest Pain TECHNIQUE: One view of the chest was acquired. COMPARISON: None. FINDINGS: Mild bilateral diffuse peribronchial thickening, some of which may be related expiratory result; however, bronchitis, viral infection, asthma or other process should be considered. Mildly prominent ana rosa, mild pulmonary vascular congestion. Mild bibasilar subsegmental atelectasis some of which may be related expiratory result. Approximately 1 cm nodule left upper lobe projects at the level of the left 5th- 6 rib interspace. No pneumothorax, no pleural effusion, no lobar consolidation. Cardiopericardial silhouette within normal limits in size. IMPRESSION: Peribronchial thickening as discussed above. Mildly prominent ana rosa, mild bibasilar subsegmental atelectasis. 1 cm left upper lobe nodule. Follow-up suggested Dictated by: Luis Mcmahon M.D. on 02/27/2025 at 13:26 Approved by: Luis Mcmahon M.D. on 02/27/2025 at 13:31
[2025-02-27 12:26] LABS: Add Manual Diff / Slide Review NO; Hematocrit 37.3 % (36-46); Hemoglobin 12.9 g/dL (12.0-16.0); Lymphocytes Absolute Auto 3600 /uL (1100-4500); Mean Corpuscular HGB Conc 34.7 % (30-36); Mean Corpuscular Hemoglobin 28.5 PG (26-34); Mean Corpuscular Volume 82.0 fL (80-100); Platelet Count 161 X10^3/uL (150-400)
[2025-02-27 12:35] LABS: INR 1.1 (0.9-1.3); Prothrombin Time 12.5 SECONDS (9.4-12.5)
[2025-02-27 12:38] LABS: PTT Partial Thromboplastin Tim 31 SECONDS (25.1-36.5)
[2025-02-27 12:39] LABS: Alanine Aminotransferase 26 IU/L (<35); Albumin 4.6 g/dL (3.5-5.0); Albumin Globulin Ratio 1.4 (1.0-2.8); Alkaline Phosphatase 80 U/L (38-126); Blood Urea Nitrogen 13 mg/dL (7-17); Calcium 9.3 mg/dL (8.4-10.2); Carbon Dioxide 23 mmol/L (22-32); Chloride 107 mmol/L (98-107); Creatine Kinase 23 U/L (30-135); Estimated Glomerular Filt Rate > 60 mL/min (>60); Globulin 3.3 g/dL (1.7-4.1); Glucose 111 mg/dL (70-99); HEMOLYSIS < 15 (0-50); Lipase 79 U/L (23-300); Magnesium 1.8 mg/dL (1.6-2.3); Potassium 3.8 mmol/L (3.4-5.1); Sodium 139 mmol/L (137-145); Total Protein 7.9 g/dL (6.3-8.2)
[2025-02-27 12:41] LABS: Appearance Urine UA SL CLOUDY; Bilirubin Urine UA NEGATIVE (NEGATIVE); Color Urine UA YELLOW; Glucose Urine UA NEGATIVE (Negative); Ketones Urine UA NEGATIVE (NEGATIVE); Leukocyte Esterase Urine UA NEGATIVE (NEGATIVE); Nitrite Urine UA NEGATIVE (Negative); Occult Blood Urine UA NEGATIVE (Negative); Protein Urine UA NEGATIVE (Negative); Specific Gravity Urine UA 1.015 (1.000-1.035); Urobilinogen Urine UA 0.2 E.U./dL (0.2)
[2025-02-27 12:42] LABS: pH Urine UA 5.5 (4.5-8.0)
--- NOTE | 2025-02-27 12:44 | ED.CHESTPAIN ---
HPI - Chest Pain <Jesús Kruse, DO - Last Filed: 02/27/25 20:33> General Chief Complaint: Chest Pain Stated Complaint: chest pain SOB Time Seen by Provider: 02/27/25 12:35 Source: patient Mode of arrival: Wheelchair Limitations: no limitations History of Present Illness HPI narrative: 44-year-old type 2 diabetes diet controlled morbidly obese presents with multiple complaints today including complex migraine history that results in the left upper extremity weakness as a baseline along with midsternal chest pain described as a squeezing type sensation and also feeling that she has been sat on and then when the balloon fills up and she feels tight. She is also is short of breath and is having dyspnea on exertion along with right-sided abdominal pain and she feels her vaginal area has a yeast infection at this time. Other than what is stated 14 point review of system is negative. Related Data Home Medications ?Medication ?Instructions ?Recorded ?Confirmed alprazolam 2 mg tablet 2 mg PO BID PRN Anxiety 06/16/23 02/21/25 acetazolamide 500 mg 500 mg PO BID 08/02/24 02/21/25 capsule,extended release blood sugar diagnostic (FreeStyle #10 ea 08/02/24 02/21/25 Precision Florencio Strips) blood-glucose meter (FreeStyle #1 ea 08/02/24 02/21/25 Precision Florencio Meter) erenumab-aooe 140 mg/mL 140 mg SUBCUT QMONTH 08/02/24 02/21/25 subcutaneous auto-injector (Aimovig Autoinjector) famotidine 20 mg tablet 20 mg PO BID 08/02/24 02/21/25 lamotrigine 100 mg tablet 50 mg PO DAILY 08/02/24 02/21/25 lamotrigine 200 mg tablet 200 mg PO DAILY 08/02/24 02/21/25 lumateperone 42 mg capsule 42 mg PO DAILY 08/02/24 02/21/25 (Caplyta) atogepant 60 mg tablet (Qulipta) 60 mg PO DAILY 09/07/24 02/21/25 cyclobenzaprine 10 mg tablet 10 mg PO BID PRN 09/07/24 02/21/25 propranolol 60 mg capsule,24 60 mg PO DAILY 02/21/25 02/21/25 hr,extended release Previous Rx's ?Medication ?Instructions ?Recorded insulin glargine 100 unit/mL (3 12 unit (0.12 mL) SUBCUT QPM Type 09/20/24 mL) subcutaneous pen (Lantus 2 diabetes #15 mL Solostar U-100 Insulin) phenazopyridine 100 mg tablet 100 mg PO TID PRN pain #60 tabs 09/27/24 (Pyridium) rabeprazole 20 mg tablet,delayed 20 mg PO DAILY #90 tabs 12/15/24 release Allergies Allergy/AdvReac Type Severity Reaction Status Date / Time azithromycin (From Zithromax) Allergy Severe Anaphylaxis Verified 02/27/25 12:04 exenatide (From Byetta) Allergy Severe Anaphylaxis Verified 02/27/25 12:04 Sulfa (Sulfonamide Allergy Severe NAUSEA, Verified 02/27/25 12:04 Antibiotics) (SULFA ITCHING (SULFONAMIDE ANTIBIOTICS)) codeine (CODEINE) Allergy Mild NAUSEA, Verified 02/27/25 12:04 ITCHING cephalexin (CEPHALEXIN) Allergy Unknown NAUSEA/VOMI Verified 02/27/25 12:04 TING levofloxacin (LEVOFLOXACIN) Allergy Unknown N/V, Verified 02/27/25 12:04 DIARRHEA, HEADACHE metoclopramide Allergy Nausea Verified 02/27/25 16:53 amitriptyline AdvReac Severe suicidal Verified 02/27/25 12:04 ideation insulin aspart AdvReac Severe very sick Verified 02/27/25 12:04 amoxicillin (AMOXICILLIN) AdvReac Intermediate YEAST Verified 02/27/25 12:04 INFECTION metformin AdvReac Mild Nausea Uncoded 02/27/25 12:04 Patient History <Jesús Kruse DO - Last Filed: 02/27/25 20:33> Medical History (Updated 02/27/25 @ 20:33 by Jesús Kruse DO) Post hysterectomy menopause BMI greater than 40 Sacral neurostimulator in situ Surgical menopause Vertigo (~2013) Tinnitus (~2001) Endometriosis (~2001) History of urinary incontinence (~1999) GERD (gastroesophageal reflux disease) (~1999) Pulmonary embolism (~2005) Fibromyalgia Diabetes mellitus (~2020) Kidney stone (~1999) Night terrors, adult Bipolar 1 disorder Surgical History (Updated 08/28/24 @ 09:14 by Rupa Lares DO) H/O midurethral sling procedure (~2014) S/P total hysterectomy and bilateral salpingo-oophorectomy (~2014) Anesthesia Status post breast reduction (~2011) History of carpal tunnel surgery (~2013) History of section Social History (Updated 10/12/24 @ 08:11 by Vicky Gaines MA) household members: friend(s) alcohol intake: current tobacco type: cigarettes alcohol intake frequency: holidays/special occasions only Exam <DO Mayank Queen C.H. Last Filed: 02/27/25 20:33> Narrative Exam Narrative: GENERAL: [44] year old patient appears stated age. Well-developed patient, in mild distress. HEAD: Atraumatic. Normocephalic. EYES: Pupils equal round and reactive. Extraocular motions intact. No scleral icterus. No injection or drainage. ENT: Nose without bleeding, purulent drainage. Throat without erythema, tonsillar hypertrophy or exudate. Airway patent. NECK: Trachea midline. Non tender CARDIOVASCULAR: Regular rate and rhythm without murmurs, gallops, or rubs. RESPIRATORY: Clear to auscultation. Breath sounds equal bilaterally. No wheezes, rales, or rhonchi. GASTROINTESTINAL: Abdomen soft, non-tender, nondistended. EXTREMITIES: No edema or joint tenderness. BACK: Nontender without deformity or crepitance. No flank tenderness. NEURO: AOx3. SKIN: No rash or erythema of visible areas Initial Vital Signs Initial Vital Signs: Vital Signs Temperature 99.0 F 02/27/25 12:04 Pulse Rate 81 02/27/25 12:04 Respiratory Rate 18 02/27/25 12:04 Blood Pressure 172/109 H 02/27/25 12:04 Pulse Oximetry 97 02/27/25 12:04 Oxygen Delivery Method Room Air 02/27/25 12:04 <Luis Reno MD - Last Filed: 02/27/25 18:23> Initial Vital Signs Initial Vital Signs: Vital Signs Temperature 99.0 F 02/27/25 12:04 Pulse Rate 81 02/27/25 12:04 Respiratory Rate 18 02/27/25 12:04 Blood Pressure 172/109 H 02/27/25 12:04 Pulse Oximetry 97 02/27/25 12:04 Oxygen Delivery Method Room Air 02/27/25 12:04 Course <DO Mayank Queen C.H. Last Filed: 02/27/25 20:33> Orders Ordered: ED Orders 02/27/25 12:11 XR chest 1V Stat EKG-12 Lead Stat 02/27/25 12:17 Complete Blood Count AUTO DIFF Stat Comprehensive Metabolic Panel Stat Lipase Stat Magnesium Stat NT-proBNP (BNP-Adult 18+) Stat PTT Partial Thromboplastin [place] Stat Prothrombin Time INR Stat Troponin & CK Cardiac Panel Stat 02/27/25 12:28 Ictotest Urine Stat Urinalysis and Microscopic Stat 02/27/25 12:58 CT abdomen pelvis w con Stat CT angio chest PE protocol Stat 02/27/25 14:55 Troponin I Stat Discontinued Medications Aspirin (Aspirin 81 Mg Chew Tab) 324 mg PO NOW ONE Stop: 02/27/25 12:11 Last Admin: 02/27/25 15:04 Dose: Not Given Documented By: DILMA Dexamethasone (Dexamethasone 10 Mg/Ml Vial) 10 mg IV NOW ONE Stop: 02/27/25 15:29 Last Admin: 02/27/25 15:32 Dose: 10 mg Documented By: DILMA Diphenhydramine HCl (Diphenhydramine 50 Mg/Ml Vial) 50 mg IV NOW ONE Stop: 02/27/25 15:19 Last Admin: 02/27/25 15:32 Dose: 50 mg Documented By: EB Droperidol (Droperidol 2.5 Mg/Ml Vial) 2.5 mg IV NOW ONE Stop: 02/27/25 15:19 Last Admin: 02/27/25 15:32 Dose: 2.5 mg Documented By: DILMA Hydromorphone HCl (Hydromorphone Hcl 0.5 Mg/0.5 Ml Syringe) 0.5 mg IV NOW ONE Stop: 02/27/25 18:16 Last Admin: 02/27/25 18:21 Dose: 0.5 mg Documented By: JI Lactated Ringer's (Lactated Ringers) 1,000 mls @ 1,000 mls/hr IV BOLUS ONE Stop: 02/27/25 16:27 Last Infusion: 02/27/25 18:32 Dose: Infused Documented By: Admin: 02/27/25 15:34 Dose: 1,000 mls/hr Documented By: DILMA Ketorolac Tromethamine (Ketorolac 30 Mg/Ml Vial) 30 mg IV NOW ONE Stop: 02/27/25 18:16 Last Admin: 02/27/25 18:21 Dose: 30 mg Documented By: JI Metoclopramide HCl (Metoclopramide 10 Mg/2 Ml Inj) 10 mg IV NOW ONE Stop: 02/27/25 14:24 Last Admin: 02/27/25 14:59 Dose: 10 mg Documented By: EB Ondansetron HCl (Ondansetron 4 Mg/2 Ml Inj) 4 mg IV NOW ONE Stop: 02/27/25 13:03 Last Admin: 02/27/25 13:21 Dose: Not Given Documented By: EB Pantoprazole Sodium (Pantoprazole 40 Mg Vial) 40 mg IV NOW ONE Stop: 02/27/25 15:22 Last Admin: 02/27/25 15:32 Dose: 40 mg Documented By: EB Vital Signs Vital signs: Vital Signs - 8 hr 02/27/25 13:16 02/27/25 13:17 02/27/25 13:17 Pulse Rate 81 79 Respiratory Rate 19 18 Blood Pressure 168/110 H Pulse Oximetry 97 97 02/27/25 13:30 02/27/25 13:30 02/27/25 14:00 Pulse Rate 74 80 Respiratory Rate 24 22 Blood Pressure 146/87 H Pulse Oximetry 96 96 02/27/25 14:00 02/27/25 14:30 02/27/25 14:37 Pulse Rate 77 79 Respiratory Rate 16 22 Blood Pressure 204/116 H Pulse Oximetry 96 96 02/27/25 14:37 02/27/25 15:00 02/27/25 15:01 Pulse Rate 81 Respiratory Rate 21 Blood Pressure 171/122 H 158/98 H Pulse Oximetry 96 02/27/25 15:01 02/27/25 15:36 02/27/25 15:37 Pulse Rate 82 82 81 Respiratory Rate 22 15 Blood Pressure Pulse Oximetry 97 98 97 02/27/25 15:37 02/27/25 16:00 02/27/25 16:00 Pulse Rate 76 Respiratory Rate 23 Blood Pressure 180/122 H 167/134 H Pulse Oximetry 92 02/27/25 16:30 02/27/25 16:31 02/27/25 16:31 Pulse Rate 75 75 Respiratory Rate 18 15 Blood Pressure 151/89 H Pulse Oximetry 94 95 02/27/25 17:00 02/27/25 17:01 02/27/25 17:01 Pulse Rate 74 76 Respiratory Rate 18 15 Blood Pressure 148/93 H Pulse Oximetry 94 96 02/27/25 17:30 02/27/25 17:30 02/27/25 18:06 Pulse Rate 75 81 Respiratory Rate 17 Blood Pressure 164/95 H Pulse Oximetry 96 95 02/27/25 18:30 02/27/25 18:31 02/27/25 18:31 Pulse Rate 78 76 Respiratory Rate 23 19 Blood Pressure 145/96 H Pulse Oximetry 97 95 <Luis Reno MD - Last Filed: 02/27/25 18:23> Course Course Narrative: 15:30 Patient care transferred to ok at the change of shift by Dr. Kruse with 2nd troponin pending and response to medication for migraine headache. This is a 44-year-old female patient with a history of GERD, fatty liver, type 2 diabetes, fibromyalgia and chronic pain issues who presents with a migraine headache and chest squeezing discomfort off and on since about noon today. She also had urinary frequency. Initial CBC, CMP and troponin are unremarkable. Urinalysis is contaminated with squamous cells but otherwise inconsistent with UTI. Chest x-ray reveals peribronchial thickening and mildly prominent chasity. 1 cm left upper lobe nodule. CTA chest reveals no pulmonary embolism or acute disease. Orders Ordered: ED Orders 02/27/25 12:11 XR chest 1V Stat EKG-12 Lead Stat 02/27/25 12:17 Complete Blood Count AUTO DIFF Stat Comprehensive Metabolic Panel Stat Lipase Stat Magnesium Stat NT-proBNP (BNP-Adult 18+) Stat PTT Partial Thromboplastin [place] Stat Prothrombin Time INR Stat Troponin & CK Cardiac Panel Stat 02/27/25 12:28 Ictotest Urine Stat Urinalysis and Microscopic Stat 02/27/25 12:58 CT abdomen pelvis w con Stat CT angio chest PE protocol Stat 02/27/25 14:55 Troponin I Stat Discontinued Medications Aspirin (Aspirin 81 Mg Chew Tab) 324 mg PO NOW ONE Stop: 02/27/25 12:11 Last Admin: 02/27/25 15:04 Dose: Not Given Documented By: EB Dexamethasone (Dexamethasone 10 Mg/Ml Vial) 10 mg IV NOW ONE Stop: 02/27/25 15:29 Last Admin: 02/27/25 15:32 Dose: 10 mg Documented By: EB Diphenhydramine HCl (Diphenhydramine 50 Mg/Ml Vial) 50 mg IV NOW ONE Stop: 02/27/25 15:19 Last Admin: 02/27/25 15:32 Dose: 50 mg Documented By: EB Droperidol (Droperidol 2.5 Mg/Ml Vial) 2.5 mg IV NOW ONE Stop: 02/27/25 15:19 Last Admin: 02/27/25 15:32 Dose: 2.5 mg Documented By: DILMA Hydromorphone HCl (Hydromorphone Hcl 0.5 Mg/0.5 Ml Syringe) 0.5 mg IV NOW ONE Stop: 02/27/25 18:16 Last Admin: 02/27/25 18:21 Dose: 0.5 mg Documented By: JI Lactated Ringer's (Lactated Ringers) 1,000 mls @ 1,000 mls/hr IV BOLUS ONE Stop: 02/27/25 16:27 Last Infusion: 02/27/25 18:32 Dose: Infused Documented By: Admin: 02/27/25 15:34 Dose: 1,000 mls/hr Documented By: DILMA Ketorolac Tromethamine (Ketorolac 30 Mg/Ml Vial) 30 mg IV NOW ONE Stop: 02/27/25 18:16 Last Admin: 02/27/25 18:21 Dose: 30 mg Documented By: JI Metoclopramide HCl (Metoclopramide 10 Mg/2 Ml Inj) 10 mg IV NOW ONE Stop: 02/27/25 14:24 Last Admin: 02/27/25 14:59 Dose: 10 mg Documented By: DILMA Ondansetron HCl (Ondansetron 4 Mg/2 Ml Inj) 4 mg IV NOW ONE Stop: 02/27/25 13:03 Last Admin: 02/27/25 13:21 Dose: Not Given Documented By: DILMA Pantoprazole Sodium (Pantoprazole 40 Mg Vial) 40 mg IV NOW ONE Stop: 02/27/25 15:22 Last Admin: 02/27/25 15:32 Dose: 40 mg Documented By: EB Vital Signs Vital signs: Vital Signs - 8 hr 02/27/25 13:16 02/27/25 13:17 02/27/25 13:17 Pulse Rate 81 79 Respiratory Rate 19 18 Blood Pressure 168/110 H Pulse Oximetry 97 97 02/27/25 13:30 02/27/25 13:30 02/27/25 14:00 Pulse Rate 74 80 Respiratory Rate 24 22 Blood Pressure 146/87 H Pulse Oximetry 96 96 02/27/25 14:00 02/27/25 14:30 02/27/25 14:37 Pulse Rate 77 79 Respiratory Rate 16 22 Blood Pressure 204/116 H Pulse Oximetry 96 96 02/27/25 14:37 02/27/25 15:00 02/27/25 15:01 Pulse Rate 81 Respiratory Rate 21 Blood Pressure 171/122 H 158/98 H Pulse Oximetry 96 02/27/25 15:01 02/27/25 15:36 02/27/25 15:37 Pulse Rate 82 82 81 Respiratory Rate 22 15 Blood Pressure Pulse Oximetry 97 98 97 02/27/25 15:37 02/27/25 16:00 02/27/25 16:00 Pulse Rate 76 Respiratory Rate 23 Blood Pressure 180/122 H 167/134 H Pulse Oximetry 92 02/27/25 16:30 02/27/25 16:31 02/27/25 16:31 Pulse Rate 75 75 Respiratory Rate 18 15 Blood Pressure 151/89 H Pulse Oximetry 94 95 02/27/25 17:00 02/27/25 17:01 02/27/25 17:01 Pulse Rate 74 76 Respiratory Rate 18 15 Blood Pressure 148/93 H Pulse Oximetry 94 96 02/27/25 17:30 02/27/25 17:30 02/27/25 18:06 Pulse Rate 75 81 Respiratory Rate 17 Blood Pressure 164/95 H Pulse Oximetry 96 95 02/27/25 18:30 02/27/25 18:31 02/27/25 18:31 Pulse Rate 78 76 Respiratory Rate 23 19 Blood Pressure 145/96 H Pulse Oximetry 97 95 MDM - Chest Pain <Jesús Kruse, DO - Last Filed: 02/27/25 20:33> Lab Data 02/27/25 12:17 02/27/25 12:17 Labs: Lab Results 02/27/25 02/27/25 02/27/25 Range/Units 12:17 12:28 14:55 WBC 7.3 (4.5-11.0) X10^3/uL RBC 4.54 (4.0-5.2) X10^6/uL Hgb 12.9 (12.0-16.0) g/dL Hct 37.3 (36-46) % MCV 82.0 (80-100) fL MCH 28.5 (26-34) PG MCHC 34.7 (30-36) % RDW 14.0 (11.6-14.8) % Plt Count 161 (150-400) X10^3/uL Neut % (Auto) 46.3 L (50-75) % Lymph % (Auto) 48.8 H (25-40) % [place] % (Auto) 4.4 (3-14) % Eos % (Auto) 0.0 L (2-4) % Baso % (Auto) 0.5 (0-2) % Neut # (Auto) 3400 (6656-1040) /uL Lymph # (Auto) 3600 (1756-2689) /uL [place] # (Auto) 300 (0-900) /uL Eos # (Auto) 0 (0-450) /uL Baso # (Auto) 0 (0-100) /uL PT 12.5 (9.4-12.5) SECONDS INR 1.1 (0.9-1.3) APTT 31 (25.1-36.5) SECONDS Sodium 139 (137-145) mmol/L Potassium 3.8 (3.4-5.1) mmol/L Chloride 107 (98-107) mmol/L Carbon Dioxide 23 (22-32) mmol/L BUN 13 (7-17) mg/dL Creatinine 0.58 (0.52-1.04) mg/dL Estimated GFR > 60 (>60) mL/min BUN/Creatinine Ratio 22.4 H (6-22) Glucose 111 H (70-99) mg/dL Calcium 9.3 (8.4-10.2) mg/dL Magnesium 1.8 (1.6-2.3) mg/dL Total Bilirubin 0.6 (0.2-1.3) mg/dL AST 29 (14-36) IU/L ALT 26 (<35) IU/L Alkaline Phosphatase 80 (38-126) U/L Total Creatine Kinase 23 L (30-135) U/L Troponin I < 0.012 < 0.012 (0.01-0.034) ng/mL NT-Pro-B Natriuret Pep 98 (<125) pg/mL Total Protein 7.9 (6.3-8.2) g/dL Albumin 4.6 (3.5-5.0) g/dL Globulin 3.3 (1.7-4.1) g/dL Albumin/Globulin Ratio 1.4 (1.0-2.8) Lipase 79 (23-300) U/L Urine Color Yellow Urine Appearance Sl cloudy Urine pH 5.5 (4.5-8.0) Ur Specific [place] 1.015 (1.000-1.035) Urine Protein Negative (Negative) Urine Glucose (UA) Negative (Negative) g/dL Urine Ketones Negative (NEGATIVE) Urine Occult Blood Negative (Negative) Urine Nitrate Negative (Negative) Urine Bilirubin Negative (NEGATIVE) Ur Bilirubin Confirm Negative (Negative) Urine Urobilinogen 0.2 (0.2) E.U./dL Ur Leukocyte Esterase Negative (NEGATIVE) Urine RBC 1-5/hpf D (0-5/HPF) Urine WBC 1-5/hpf (0-5/HPF) Ur Squamous Epith Cells 10-30 /hpf H (0-5/HPF) Urine Bacteria Many (>30) H (None) Ur Culture Indicated? Cult not indicated Vol Urine Centrifuged 10ml (spun) Urine Dip Bedside Urine Glucose Negative Bedside Urine Bilirubin + 1 Bedside Urine Ketone - Negative Urine Specific [place] 1.015 Bedside Urine Occult Blood - Negative Bedside Urine pH 6.0 Bedside Urine Protein - Negative Bedside Urine Urobilinogen - Negative Bedside Urine Nitrite - Negative Bedside Urine Leukocytes - Negative Esterase Imaging Data CT scan - chest: Radiologist's Impression: [address] [address] [address] Scan Report Signed Patient: Kathie Landers MR#: [id number] : 1980 Acct:[id number] Age/Sex: 44 / F Date of Service: 02/27/25 Loc: ED Accession Number: [id number] Procedure: CT angio chest PE protocol Ordering Provider: Jesús Kruse D.O. PROCEDURE: CT ANGIO CHEST PE PROTOCOL INDICATIONS: abd pain, sob, chest pain TECHNIQUE: After the administration of intravenous contrast, 2 mm thick sections acquired from the pulmonary apices to the posterior costophrenic angles. 3-dimensional maximum intensity projection (MIP) coronal and sagittal reformats were then acquired through the thorax. For radiation dose reduction, the following was used: automated exposure control, adjustment of mA and/or kV according to patient size. COMPARISON: [place], [place], PET NECK TO MID THIGH, 11/11/2017, 10:06. FINDINGS: Image quality: Diagnostic. Pulmonary arteries: Pulmonary arteries are normal in size, and demonstrate no intraluminal filling defects to suggest central pulmonary embolism. Lower Neck: No enlarged lymph nodes. Thyroid: No thyroid nodules which require sonographic follow up, per consensus guidelines. Axillae: No enlarged lymph nodes. Chest Wall: Unremarkable. Bones: Unremarkable. Lungs and Pleura: No pneumothorax or pleural effusions. No consolidation. 9 mm left lower lobe nodule series 3 image 83. This measured 6 mm in 2018 and did not demonstrate hypermetabolic activity on PET. Heart: Heart size is normal. No pericardial effusion. Thoracic Vessels: No aortic aneurysm. Mediastinum and Chasity: No enlarged lymph nodes. Esophagus: No wall thickening. No hiatal hernia. Upper Abdomen: Visualized upper abdomen solid organs and bowel loops appear normal. IMPRESSION: No pulmonary embolus. No acute cardiopulmonary process. Dictated by: Sandy Jacob M.D. on 02/27/2025 at 15:01 Approved by: Sandy Jacob M.D. on 02/27/2025 at 15:03 CT scan - abdomen/pelvis: Radiologist's Impression: [place] [address] CT Scan Report Signed Patient: Kathie Landers MR#: [id number] : 1980 Acct:[id number] Age/Sex: 44 / F Date of Service: 02/27/25 Loc: ED Accession Number: [id number] Procedure: CT abdomen pelvis w con Ordering Provider: Jesús Kruse D.O. PROCEDURE: CT ABDOMEN PELVIS W CON INDICATIONS: abd pain TECHNIQUE: After the administration of intravenous contrast, axial sections acquired from the lung bases to the pubic symphysis. Coronal and sagittal reformats were performed. For radiation dose reduction, the following was used: automated exposure control, adjustment of mA and/or kV according to patient size. COMPARISON: [facility], CT, CT ABDOMEN PELVIS W CON, 07/04/2024, 12:11. FINDINGS: Image quality: Diagnostic. Lower Chest: No significant findings. ABDOMEN: Mild nonspecific wall thickening of the stomach into the duodenum commonly artifact from partial nondistention although mild gastritis, duodenitis could have a similar appearance. Mild splenomegaly the spleen measures up to approximately 15.5 cm AP by 10 cm transverse by 14 cm cc maximal dimensions similar to the prior exam. Liver measures approximately 22 cm in CC dimension of the right lobe more than expected for normal variant Kath's lobe, moderate hepatomegaly similar to the prior exam. Nonspecific heterogeneous attenuation of the L3 vertebral body similar to the prior exam, does not have typical appearance for vertebral body hemangioma and infiltrative process, lymphoma, multiple myeloma or other cause could be considered. Normal nondilated appendix. Gallbladder: No radiopaque gallstones or wall thickening. Biliary ducts: No biliary dilation. Pancreas: No ductal dilation. Spleen: Size is within normal limits. Adrenal Glands: No adrenal nodules. Kidneys and Ureters: No hydronephrosis. No solid mass. No complex renal cystic lesion which requires follow up. Small Bowel: Normal caliber, without significant wall thickening no obstruction. Peritoneum: No abnormal intraperitoneal fluid. No free air. Ventral Wall: No significant ventral hernia. Abdominal Nodes: No retroperitoneal or mesenteric adenopathy by size criteria. Vessels: Aorta and inferior vena cava are normal in size. PELVIS: Pelvic Organs: Unremarkable. Bladder: No bladder wall thickening, accounting for underdistention. Pelvic Nodes: No enlarged lymph nodes. Miscellaneous: No inguinal hernias are seen. IMPRESSION: Nonspecific wall thickening of the stomach into the duodenum as discussed above. Hepatosplenomegaly similar to the prior exam. L3 vertebral body heterogeneous attenuation as discussed above. Nondilated appendix. No hydronephrosis, no renal, ureteral or bladder ca ECG Data Interpretation: NSR HR 81 IA 186 QRS [address]-t wave change Unchanged from 09/28/24 MDM Narrative Medical decision making narrative: All lab work, vital signs, nurse triage note, medication list, previous ER visits, and all imaging studies reviewed. CT scan abdomen and pelvis showed nonspecific wall thickening of the stomach in the to the duodenum. Hepatosplenomegaly similar to prior exam. L3 vertebral body heterogeneous attenuation as discussed. Nondilated appendix no hydronephrosis no renal ureteral or bladder calculi. CTA showed no pulmonary embolus no acute cardiopulmonary process. WBC 7.3 hemoglobin 12.9 INR 1.1 sodium 139 potassium 3.8 chloride 107 CO2 23 BUN 13 creatinine 0.58 EKG normal sinus rhythm 81. Patient given fluids Reglan Benadryl droperidol Decadron Protonix. Patient signed out to Dr. Abebe at shift change pending final disposition. Patient responded partially to combination of medications for migraine including droperidol, Decadron, diphenhydramine. I gave her additional ketorolac and a half a mg of hydromorphone at her request. Lab work is unremarkable including urinalysis for UTI. Troponin x2 is unremarkable along with her EKG. This does not appear to be a cardiac source of chest discomfort. She is discharged home with instructions to rest, hydrate and monitor symptoms. Continue her current medications. Follow up with her doctor within a week. Return to the ER if worse. <Luis Reno MD - Last Filed: 02/27/25 18:23> Lab Data Attestation: I reviewed the patient's lab results. Labs: Lab Results 02/27/25 02/27/25 02/27/25 Range/Units 12:17 12:28 14:55 WBC 7.3 (4.5-11.0) X10^3/uL RBC 4.54 (4.0-5.2) X10^6/uL Hgb 12.9 (12.0-16.0) g/dL Hct 37.3 (36-46) % MCV 82.0 (80-100) fL MCH 28.5 (26-34) PG MCHC 34.7 (30-36) % RDW 14.0 (11.6-14.8) % Plt Count 161 (150-400) X10^3/uL Neut % (Auto) 46.3 L (50-75) % Lymph % (Auto) 48.8 H (25-40) % [place] % (Auto) 4.4 (3-14) % Eos % (Auto) 0.0 L (2-4) % Baso % (Auto) 0.5 (0-2) % Neut # (Auto) 3400 (2015-6047) /uL Lymph # (Auto) 3600 (7058-3396) /uL [place] # (Auto) 300 (0-900) /uL Eos # (Auto) 0 (0-450) /uL Baso # (Auto) 0 (0-100) /uL PT 12.5 (9.4-12.5) SECONDS INR 1.1 (0.9-1.3) APTT 31 (25.1-36.5) SECONDS Sodium 139 (137-145) mmol/L Potassium 3.8 (3.4-5.1) mmol/L Chloride 107 (98-107) mmol/L Carbon Dioxide 23 (22-32) mmol/L BUN 13 (7-17) mg/dL Creatinine 0.58 (0.52-1.04) mg/dL Estimated GFR > 60 (>60) mL/min BUN/Creatinine Ratio 22.4 H (6-22) Glucose 111 H (70-99) mg/dL Calcium 9.3 (8.4-10.2) mg/dL Magnesium 1.8 (1.6-2.3) mg/dL Total Bilirubin 0.6 (0.2-1.3) mg/dL AST 29 (14-36) IU/L ALT 26 (<35) IU/L Alkaline Phosphatase 80 (38-126) U/L Total Creatine Kinase 23 L (30-135) U/L Troponin I < 0.012 < 0.012 (0.01-0.034) ng/mL NT-Pro-B Natriuret Pep 98 (<125) pg/mL Total Protein 7.9 (6.3-8.2) g/dL Albumin 4.6 (3.5-5.0) g/dL Globulin 3.3 (1.7-4.1) g/dL Albumin/Globulin Ratio 1.4 (1.0-2.8) Lipase 79 (23-300) U/L Urine Color Yellow Urine Appearance Sl cloudy Urine pH 5.5 (4.5-8.0) Ur Specific [place] 1.015 (1.000-1.035) Urine Protein Negative (Negative) Urine Glucose (UA) Negative (Negative) g/dL Urine Ketones Negative (NEGATIVE) Urine Occult Blood Negative (Negative) Urine Nitrate Negative (Negative) Urine Bilirubin Negative (NEGATIVE) Ur Bilirubin Confirm Negative (Negative) Urine Urobilinogen 0.2 (0.2) E.U./dL Ur Leukocyte Esterase Negative (NEGATIVE) Urine RBC 1-5/hpf D (0-5/HPF) Urine WBC 1-5/hpf (0-5/HPF) Ur Squamous Epith Cells 10-30 /hpf H (0-5/HPF) Urine Bacteria Many (>30) H (None) Ur Culture Indicated? Cult not indicated Vol Urine Centrifuged 10ml (spun) Urine Dip Bedside Urine Glucose Negative Bedside Urine Bilirubin + 1 Bedside Urine Ketone - Negative Urine Specific [place] 1.015 Bedside Urine Occult Blood - Negative Bedside Urine pH 6.0 Bedside Urine Protein - Negative Bedside Urine Urobilinogen - Negative Bedside Urine Nitrite - Negative Bedside Urine Leukocytes - Negative Esterase MDM Narrative Medical decision making narrative: All lab work, vital signs, nurse triage note, medication list, previous ER visits, and all imaging studies reviewed. CT scan abdomen and pelvis showed nonspecific wall thickening of the stomach in the to the duodenum. Hepatosplenomegaly similar to prior exam. L3 vertebral body heterogeneous attenuation as discussed. Nondilated appendix no hydronephrosis no renal ureteral or bladder calculi. CTA showed no pulmonary embolus no acute cardiopulmonary process. WBC 7.3 hemoglobin 12.9 INR 1.1 sodium 139 potassium 3.8 chloride 107 CO2 23 BUN 13 creatinine 0.58 EKG normal sinus rhythm 81. Patient given fluids Reglan Benadryl droperidol Decadron Protonix. Patient responded partially to combination of medications for migraine including droperidol, Decadron, diphenhydramine. I gave her additional ketorolac and a half a mg of hydromorphone at her request. Lab work is unremarkable including urinalysis for UTI. Troponin x2 is unremarkable along with her EKG. This does not appear to be a cardiac source of chest discomfort. She is discharged home with instructions to rest, hydrate and monitor symptoms. Continue her current medications. Follow up with her doctor within a week. Return to the ER if worse. Discharge Plan Departure Patient Disposition: Home Clinical Impression: Atypical chest pain, Dysuria Headache, migraine Qualifiers: Migraine type: unspecified Status migrainosus presence: without status migrainosus Intractability: not intractable Qualified Code(s): G43.909 - Migraine, unspecified, not intractable, without status migrainosus Instructions: DI for Migraine, DI for Atypical Chest Pain, DI for Interstitial Cystitis Activity Restrictions/Additional Instructions: Plan: Hydration, rest and supportive care with continued use of current medications. Monitor symptoms. Follow up with your doctor within the next week to discuss symptoms. Return to the ER if worse. Prescriptions: No Action insulin glargine [Lantus Solostar U-100 Insulin] 100 unit/mL (3 mL) insulin pen 12 unit SUBCUT QPM Qty: 15 0RF Rx Instructions: Inject 12 units once daily in the evening. rabeprazole 20 mg tablet,delayed release (DR/EC) 20 mg PO DAILY Qty: 90 1RF famotidine 20 mg tablet 20 mg PO BID Aimovig Autoinjector 140 mg/mL auto-injector 140 mg SUBCUT QMONTH Patient Comments: [NO ORIGINAL SIG] (DME) blood-glucose meter [FreeStyle Precision [place] Meter] Misc See Rx Instructions .ROUTE BID Qty: 1 Rx Instructions: As directed (DME) FreeStyle Precision [place] Strips Strip See Rx Instructions .ROUTE 3XD Qty: 10 Rx Instructions: As directed use 1 TEST STRIP to TEST BLOOD SUGAR three times a day acetazolamide 500 mg capsule, extended release 500 mg PO BID Patient Comments: [NO ORIGINAL SIG] Caplyta 42 mg capsule 42 mg PO DAILY lamotrigine 100 mg tablet 50 mg PO DAILY lamotrigine 200 mg tablet 200 mg PO DAILY Rx Instructions: Take total of 250 mg daily phenazopyridine [Pyridium] 100 mg tablet 100 mg PO TID PRN (Reason: pain) Qty: 60 11RF propranolol 60 mg capsule,extended release 24 hr 60 mg PO DAILY Qulipta 60 mg tablet 60 mg PO DAILY cyclobenzaprine 10 mg tablet 10 mg PO BID PRN alprazolam 2 mg tablet 2 mg PO BID PRN (Reason: Anxiety) Referrals: Leonor Linares DO [Primary Care Provider, Family Practice] Stand Alone Forms: Patient Portal/API
[2025-02-27 12:51] LABS: NT-proBNP (BNP-Adult 18+) 98 pg/mL (<125); Troponin I < 0.012 ng/mL (0.01-0.034)
[2025-02-27 12:53] LABS: Culture Indicated Urine Cult Not Indicated
--- NOTE | 2025-02-27 12:58 | DI.CT.S_ITS ---
PROCEDURE: CT ANGIO CHEST PE PROTOCOL INDICATIONS: abd pain, sob, chest pain TECHNIQUE: After the administration of intravenous contrast, 2 mm thick sections acquired from the pulmonary apices to the posterior costophrenic angles. 3-dimensional maximum intensity projection (MIP) coronal and sagittal reformats were then acquired through the thorax. For radiation dose reduction, the following was used: automated exposure control, adjustment of mA and/or kV according to patient size. COMPARISON: [place], [place], PET NECK TO MID THIGH, 11/11/2017, 10:06. FINDINGS: Image quality: Diagnostic. Pulmonary arteries: Pulmonary arteries are normal in size, and demonstrate no intraluminal filling defects to suggest central pulmonary embolism. Lower Neck: No enlarged lymph nodes. Thyroid: No thyroid nodules which require sonographic follow up, per consensus guidelines. Axillae: No enlarged lymph nodes. Chest Wall: Unremarkable. Bones: Unremarkable. Lungs and Pleura: No pneumothorax or pleural effusions. No consolidation. 9 mm left lower lobe nodule series 3 image 83. This measured 6 mm in 2018 and did not demonstrate hypermetabolic activity on PET. Heart: Heart size is normal. No pericardial effusion. Thoracic Vessels: No aortic aneurysm. Mediastinum and Chasity: No enlarged lymph nodes. Esophagus: No wall thickening. No hiatal hernia. Upper Abdomen: Visualized upper abdomen solid organs and bowel loops appear normal. IMPRESSION: No pulmonary embolus. No acute cardiopulmonary process. Dictated by: Sandy Jacob M.D. on 02/27/2025 at 15:01 Approved by: Sandy Jacob M.D. on 02/27/2025 at 15:03
--- NOTE | 2025-02-27 12:58 | DI.CT.S_ITS ---
PROCEDURE: CT ABDOMEN PELVIS W CON INDICATIONS: abd pain TECHNIQUE: After the administration of intravenous contrast, axial sections acquired from the lung bases to the pubic symphysis. Coronal and sagittal reformats were performed. For radiation dose reduction, the following was used: automated exposure control, adjustment of mA and/or kV according to patient size. COMPARISON: [facility], CT, CT ABDOMEN PELVIS W CON, 07/04/2024, 12:11. FINDINGS: Image quality: Diagnostic. Lower Chest: No significant findings. ABDOMEN: Mild nonspecific wall thickening of the stomach into the duodenum commonly artifact from partial nondistention although mild gastritis, duodenitis could have a similar appearance. Mild splenomegaly the spleen measures up to approximately 15.5 cm AP by 10 cm transverse by 14 cm cc maximal dimensions similar to the prior exam. Liver measures approximately 22 cm in CC dimension of the right lobe more than expected for normal variant Kath's lobe, moderate hepatomegaly similar to the prior exam. Nonspecific heterogeneous attenuation of the L3 vertebral body similar to the prior exam, does not have typical appearance for vertebral body hemangioma and infiltrative process, lymphoma, multiple myeloma or other cause could be considered. Normal nondilated appendix. Gallbladder: No radiopaque gallstones or wall thickening. Biliary ducts: No biliary dilation. Pancreas: No ductal dilation. Spleen: Size is within normal limits. Adrenal Glands: No adrenal nodules. Kidneys and Ureters: No hydronephrosis. No solid mass. No complex renal cystic lesion which requires follow up. Small Bowel: Normal caliber, without significant wall thickening no obstruction. Peritoneum: No abnormal intraperitoneal fluid. No free air. Ventral Wall: No significant ventral hernia. Abdominal Nodes: No retroperitoneal or mesenteric adenopathy by size criteria. Vessels: Aorta and inferior vena cava are normal in size. PELVIS: Pelvic Organs: Unremarkable. Bladder: No bladder wall thickening, accounting for underdistention. Pelvic Nodes: No enlarged lymph nodes. Miscellaneous: No inguinal hernias are seen. IMPRESSION: Nonspecific wall thickening of the stomach into the duodenum as discussed above. Hepatosplenomegaly similar to the prior exam. L3 vertebral body heterogeneous attenuation as discussed above. Nondilated appendix. No hydronephrosis, no renal, ureteral or bladder calculi. Dictated by: Luis Mcmahon M.D. on 02/27/2025 at 14:47 Approved by: Luis Mcmahon M.D. on 02/27/2025 at 14:58
[2025-02-27 13:00] LABS: Ictotest Urine Negative (Negative)
--- NOTE | 2025-02-27 13:15 | PC.NURSE ---
Presents to ED with chest pain/SOB/intermittent lightheaded. Reports having previous episodes like this possibly r/t migraines. Pt reports she also had back pain around her kidneys and bladder pain that is sharp and shooting.
[2025-02-27] MEDS: METOCLOPRAMIDE 10 MG/2 ML INJ IV (14:59)
--- NOTE | 2025-02-27 15:21 | PC.NURSE ---
Pt experiencing increased nausea after reglan given. MD gave verbal order for droperidol and benadryl as follow up.
[2025-02-27] MEDS: PANTOPRAZOLE 40 MG VIAL IV (15:32)
[2025-02-27] MEDS: diphenhydrAMINE 50 MG/ML VIAL IV (15:32)
[2025-02-27] MEDS: droPERidol 2.5 MG/ML VIAL IV (15:32)
[2025-02-27] MEDS: LACTATED RINGERS 1,000 ML 1000 ML IV (15:34)
[2025-02-27 16:03] LABS: Troponin I < 0.012 ng/mL (0.01-0.034)
[2025-02-27] MEDS: KETOROLAC 30 MG/ML VIAL IV (18:21)
== END 2025-02-27 18:54 | disposition home or self-care (01) ==
PROVIDERS: Family Medicine; Emergency Provider Emergency Medicine; PCP Family Medicine
DX: R07.89 Other chest pain (principal); R30.0 Dysuria; G43.909 Migraine, unspecified, not intractable, without status migrainosus; R06.02 Shortness of breath; E66.01 Morbid (severe) obesity due to excess calories; Z68.39 Body mass index [BMI] 39.0-39.9, adult
CPT/HCPCS: 36415; 71045; 71275; 74177; 80053; 81001; 81003; 82550; 83690; 83735; 83880; 84484; 85025; 85610; 85730; 93005; 96361; 96374; 96375; 99284; J1100; J1171; J1200; J1790; J1885; J2470; J2765; J7120; Q9967